=== PATIENT | female | born 1940 | race American Indian/Alaskan Native ===

== ENCOUNTER → 2017-10-10 | Emergency (ER) | payer MEDICARE ==
[~2017-10-10] VITALS: Ht 152.4 cm; Wt 45.0 kg
[~2017-10-10] MED LIST: ASPI-955 PO; BACI28OI9 TP; CEPH-572 PO; CEPH500C5 PO; COMIN IH; CefTRIAXone 2gm/NS 100ml IVPB 100 ML IV ONE; DILT60TA4 PO; DIPY50TA PO; HYDR-3972 PO; LISI10TA4 PO; OXCA300T39 PO; OXCA600T5 PO; POLY17PO10 PO; ZOL50T PO; [UNRECOGNIZED DRUG - REMARK]; dextrose 50%-water 50ml dispensing syringe IV ONE; normal saline 1000ML IV soln IV ONE
[2017-10-10 15:18] LABS: BASOPHILS % (AUTO) 0.5 % (0-1); EOSINOPHILS % (AUTO) 0.6 % (0-6); HEMATOCRIT 39.8 % (35.0-45.0); LYMPHOCYTES # (AUTO) 0.8 X10'3 (1.1-4.8); LYMPHOCYTES % (AUTO) 35.7 % (21-51); MEAN CORPUSCULAR HEMOGLOBIN 29.4 PG (27.0-31.0); MEAN CORPUSCULAR HGB CONC 32.7 % (33.0-36.5); MEAN CORPUSCULAR VOLUME 89.8 FL (78-98); MEAN PLATELET VOLUME 8.6 FL (7.4-10.4); MONOCYTES # (AUTO) 0.2 X10'3 (0-0.9); NEUTROPHILS # (AUTO) 1.2 X10'3 (1.8-7.7); NEUTROPHILS % (AUTO) 54.2 % (42-75); PLATELET COUNT 179 X10'3 (140-440); RED BLOOD COUNT 4.43 X10'6 (4.20-5.60); WHITE BLOOD COUNT 2.2 X10'3 (4.5-11.0)
[2017-10-10 15:21] LABS: ALANINE AMINOTRANSFERASE 35 U/L (12-78); ALBUMIN 3.7 G/DL (3.4-5.0); ALBUMIN/GLOBULIN RATIO 0.9 (1.1-1.5); ALKALINE PHOSPHATASE 84 IU/L (46-116); ANION GAP 6 (8-16); ASPARTATE AMINO TRANSFERASE 35 U/L (10-37); BILIRUBIN,TOTAL 0.4 MG/DL (0.1-1.0); BLOOD UREA NITROGEN 29 MG/DL (7-18); BUN/CREATININE RATIO 30.5 (6.6-38.0); CALCIUM 9.3 MG/DL (8.5-10.1); CHLORIDE 107 MMOL/L (99-107); CREATININE 0.95 MG/DL (0.40-0.90); GLUCOSE 114 MG/DL (70-104); POTASSIUM 4.3 MMOL/L (3.5-5.1); SODIUM 142 MMOL/L (135-145); TOTAL CARBON DIOXIDE 29.4 MMOL/L (24-32); TOTAL PROTEIN 7.9 G/DL (6.4-8.2); eGFR 57 ML/MIN
[2017-10-10 15:22] LABS: CLARITY,URINE SLIGHTLY CLOUDY (Clear); COLOR,URINE YELLOW (Yellow); GLUCOSE, URINE NEGATIVE (Neg); KETONES,URINE NEGATIVE (Neg); LEUKOCYTE ESTERASE ,URINE TRACE (Neg); NITRITES, URINE NEGATIVE (Neg); OCCULT BLOOD,URINE SMALL (Neg); PH,URINE 6.5 (4.8-8.0); PROTEIN,URINE 30 mg/dl (Neg); UA COLLECTION TYPE STRAIGHT CATH; UROBILINOGEN,URINE 0.2 E.U/dL (0.2-1.0)
[2017-10-10 15:31] LABS: AMORPHOUS URATES 1+; MUCUS STRANDS FEW /LPF (Neg); SQUAMOUS EPITHELIAL CELL,UR MANY /LPF (FEW)
[2017-10-10 15:32] LABS: BACTERIA,URINE 4+ /HPF (Neg); TRANSITIONAL EPI CELLS,URINE FEW /HPF; WBC,URINE 20-30 /HPF (0-4)
[2017-10-10 16:02] LABS: ANISOCYTOSIS 2+; BURR CELLS 1+; ELLIPTOCYTES FEW; PLATELET ESTIMATE NORMAL; TOTAL CELLS COUNTED 100
[2017-10-10 17:19] VITALS: BP 157/97
== END | disposition home or self-care (01) ==
LOC: ER 13:24
DX: G40.89 Other seizures (principal); N39.0 Urinary tract infection, site not specified; I12.9 Hypertensive chronic kidney disease with stage 1 through stage 4 chronic kidney disease, or unspecified chronic kidney disease; N18.9 Chronic kidney disease, unspecified; E16.2 Hypoglycemia, unspecified; J44.9 Chronic obstructive pulmonary disease, unspecified; I48.91 Unspecified atrial fibrillation; K21.9 Gastro-esophageal reflux disease without esophagitis; E78.00 Pure hypercholesterolemia, unspecified; Z66 Do not resuscitate; Z86.73 Personal history of transient ischemic attack (TIA), and cerebral infarction without residual deficits; Z95.0 Presence of cardiac pacemaker; Z98.890 Other specified postprocedural states; Z79.82 Long term (current) use of aspirin; Z79.899 Other long term (current) drug therapy
CPT/HCPCS: 36415; 80053; 81001; 82948; 83605; 84145; 85025; 87040; 87088; 96365; 96375; 99284; J0696; J7030

== ENCOUNTER 2017-10-30 11:45 | Emergency (ER) | payer MEDICARE, OTHER ==
[~2017-10-30] VITALS: Ht 152.4 cm; Wt 50.0 kg
[~2017-10-30 11:45] MED LIST changes: -CEPH-572 PO; -CefTRIAXone 2gm/NS 100ml IVPB 100 ML IV ONE; -dextrose 50%-water 50ml dispensing syringe IV ONE; -normal saline 1000ML IV soln IV ONE
[2017-10-30 12:41] LABS: BASOPHILS % (AUTO) 0.4 % (0-1); EOSINOPHILS # (AUTO) 0.1 X10'3 (0-0.9); EOSINOPHILS % (AUTO) 1.7 % (0-6); HEMATOCRIT 38.3 % (35.0-45.0); HEMOGLOBIN 12.4 g/dl (12.0-16.0); LYMPHOCYTES # (AUTO) 1.6 X10'3 (1.1-4.8); LYMPHOCYTES % (AUTO) 29.1 % (21-51); MEAN CORPUSCULAR HEMOGLOBIN 29.3 PG (27.0-31.0); MEAN CORPUSCULAR HGB CONC 32.4 % (33.0-36.5); MEAN CORPUSCULAR VOLUME 90.3 FL (78-98); MEAN PLATELET VOLUME 7.9 FL (7.4-10.4); MONOCYTES # (AUTO) 0.3 X10'3 (0-0.9); MONOCYTES % (AUTO) 4.8 % (2-12); NEUTROPHILS # (AUTO) 3.5 X10'3 (1.8-7.7); PLATELET COUNT 193 X10'3 (140-440); RED BLOOD COUNT 4.24 X10'6 (4.20-5.60); RED CELL DISTRIBUTION WIDTH 17.3 % (11.5-14.5); WHITE BLOOD COUNT 5.5 X10'3 (4.5-11.0)
[2017-10-30 12:51] LABS: PARTIAL THROMBOPLASTIN TIME 30 SECONDS (22-32); PROTHROMBIN TIME 10.2 SECONDS (9.0-12.0)
[2017-10-30 12:57] LABS: CLARITY,URINE CLOUDY (Clear); COLOR,URINE YELLOW (Yellow); GLUCOSE, URINE NEGATIVE (Neg); KETONES,URINE NEGATIVE (Neg); LEUKOCYTE ESTERASE ,URINE MODERATE (Neg); NITRITES, URINE NEGATIVE (Neg); OCCULT BLOOD,URINE LARGE (Neg); PH,URINE 7.5 (4.8-8.0); PROTEIN,URINE 30 mg/dl (Neg); UROBILINOGEN,URINE 0.2 E.U/dL (0.2-1.0)
[2017-10-30 12:58] LABS: ALANINE AMINOTRANSFERASE 36 U/L (12-78); ALBUMIN 3.5 G/DL (3.4-5.0); ALBUMIN/GLOBULIN RATIO 0.9 (1.1-1.5); ALKALINE PHOSPHATASE 78 IU/L (46-116); ANION GAP 7 (8-16); ASPARTATE AMINO TRANSFERASE 29 U/L (10-37); BILIRUBIN,TOTAL 0.3 MG/DL (0.1-1.0); BLOOD UREA NITROGEN 32 MG/DL (7-18); CALCIUM 8.8 MG/DL (8.5-10.1); CHLORIDE 109 MMOL/L (99-107); GLUCOSE 82 MG/DL (70-104); POTASSIUM 4.4 MMOL/L (3.5-5.1); SODIUM 145 MMOL/L (135-145); TOTAL PROTEIN 7.4 G/DL (6.4-8.2); eGFR 69 ML/MIN
[2017-10-30 13:03] LABS: UA COLLECTION TYPE STRAIGHT CATH
[2017-10-30 13:04] LABS: BACTERIA,URINE FEW /HPF (Neg); MUCUS STRANDS FEW /LPF (Neg); RBC,URINE 0-2 /HPF (0-2); SQUAMOUS EPITHELIAL CELL,UR MANY /LPF (FEW)
[2017-10-30] MEDS ORDERED: bisacodyl 10mg suppository rectal RC ONE (13:30)
[2017-10-30] MEDS ORDERED: BISA-155 PO (13:49)
[2017-10-30] MEDS ORDERED: BISA10SU60 RC (13:49)
[2017-10-30] MEDS ORDERED: METR500T4 PO (15:00)
[2017-10-30] MEDS ORDERED: metroNIDAZOLE 500mg tablet PO ONE (15:00)
[2017-10-30] MEDS ORDERED: normal saline 1000ml 1,000 ML IV SCH (15:28)
[2017-10-30] MEDS ORDERED: magnesium 4gm in 100ml NS 100 ML IV PRN (15:30)
[2017-10-30] MEDS ORDERED: dextrose 50%-water 50ml dispensing syringe IV PRN ×2 (15:30)
[2017-10-30] MEDS ORDERED: potassium Cl 20 mEq SR tablet PO PRN ×2 (15:30)
[2017-10-30] MEDS ORDERED: magnesium 2GM in 50ml NS 50 ML IV PRN (15:30)
[2017-10-30] MEDS ORDERED: mag hydrox/Alum hydrox/simeth 30ml oral suspension PO PRN (15:30)
[2017-10-30] MEDS ORDERED: magnesium hydroxide 30ml (MOM) UD suspension PO PRN (15:30)
[2017-10-30] MEDS ORDERED: dextrose ORAL solution 15 GM/59 ML bottle PO PRN ×2 (15:30)
[2017-10-30] MEDS ORDERED: insulin Lispro (HumaLOG) vial - multi-dose SQ SCH (15:30)
[2017-10-30] MEDS ORDERED: acetaminophen 325mg tablet PO PRN (15:30)
[2017-10-30] MEDS ORDERED: HYDROcodone/acetaminophen 5mg/325mg tablet PO PRN (15:30)
[2017-10-30] MEDS ORDERED: ondansetron/PF 4mg/2ml inj IV PRN (15:30)
[2017-10-30] MEDS ORDERED: potassium Cl 40MEQ/NS 500ml 500 ML IV PRN ×2 (15:30)
[2017-10-30] MEDS ORDERED: K and/or MAG REPLACEMENT MC SCH (15:30)
[2017-10-30] MEDS ORDERED: glucagon, human recombinant 1mg kit SUBCUT PRN (15:30)
[2017-10-30] MEDS ORDERED: MESSAGE TO PHARMACY PO ONE (15:30)
[2017-10-30 16:25] VITALS: BP 115/63
[2017-10-30] MEDS ORDERED: heparin, porcine 5000 units/ml vial SQ SCH (20:00)
[2017-10-30] MEDS ORDERED: Insulin Detemir pen SQ SCH (21:00)
== END 2017-10-30 16:27 | disposition home or self-care (01) ==
LOC: ER 11:46 → UNDOADMOB 15:28 → ED HOLD 15:28 → ER 16:27 → UNDODISOB 16:48
DX: K59.00 Constipation, unspecified (principal); N76.0 Acute vaginitis; E78.00 Pure hypercholesterolemia, unspecified; I10 Essential (primary) hypertension; J44.9 Chronic obstructive pulmonary disease, unspecified; K21.9 Gastro-esophageal reflux disease without esophagitis; I48.91 Unspecified atrial fibrillation; Z90.710 Acquired absence of both cervix and uterus; Z98.890 Other specified postprocedural states; Z95.0 Presence of cardiac pacemaker; Z86.73 Personal history of transient ischemic attack (TIA), and cerebral infarction without residual deficits; Z79.82 Long term (current) use of aspirin; Z79.899 Other long term (current) drug therapy
CPT/HCPCS: 36415; 74018; 74176; 80053; 81001; 83036; 85025; 85610; 85730; 87077; 87088; 87186; 99285; J3490; G0378

== ENCOUNTER 2018-01-23 14:11 | Inpatient (IN) | payer MEDICARE, OTHER ==
[~2018-01-23] VITALS: Ht 160 cm; Wt 50.0 kg
[~2018-01-23 14:11] MED LIST changes: -ASPI-955 PO; +ASPI81TA46 PO; -BACI28OI9 TP; +BISA-155 PO; -CEPH500C5 PO; -COMIN IH; -DILT60TA4 PO; +DULR RC; +IPRA4AER IH; +OXCA300T PO; -OXCA300T39 PO; +OXCA600T PO; -OXCA600T5 PO; -ZOL50T PO; +[UNRECOGNIZED DRUG - REMARK]; -[UNRECOGNIZED DRUG - REMARK]
[2018-01-23] MEDS ORDERED: normal saline 1000ML IV soln IVB ONE (14:20)
[2018-01-23] MEDS ORDERED: bisacodyl 10mg suppository rectal RC STA (14:42)
[2018-01-23 14:43] LABS: BASOPHILS % (AUTO) 0.3 % (0-1); EOSINOPHILS # (AUTO) 0.1 X10'3 (0-0.9); HEMATOCRIT 35.2 % (35.0-45.0); HEMOGLOBIN 11.6 g/dl (12.0-16.0); LYMPHOCYTES # (AUTO) 1.6 X10'3 (1.1-4.8); LYMPHOCYTES % (AUTO) 24.4 % (21-51); MEAN CORPUSCULAR HEMOGLOBIN 30.8 PG (27.0-31.0); MEAN CORPUSCULAR HGB CONC 32.9 % (33.0-36.5); MEAN CORPUSCULAR VOLUME 93.6 FL (78-98); MEAN PLATELET VOLUME 9.1 FL (7.4-10.4); MONOCYTES # (AUTO) 0.3 X10'3 (0-0.9); MONOCYTES % (AUTO) 4.7 % (2-12); NEUTROPHILS # (AUTO) 4.5 X10'3 (1.8-7.7); NEUTROPHILS % (AUTO) 68.6 % (42-75); PLATELET COUNT 193 X10'3 (140-440); RED BLOOD COUNT 3.77 X10'6 (4.20-5.60); WHITE BLOOD COUNT 6.6 X10'3 (4.5-11.0)
[2018-01-23] MEDS ORDERED: methylnaltrexone br 12mg/0.6ml inj***SubQ only SQ ONE (14:45)
[2018-01-23 14:58] LABS: ALANINE AMINOTRANSFERASE 29 U/L (12-78); ALBUMIN 3.5 G/DL (3.4-5.0); ALBUMIN/GLOBULIN RATIO 0.9 (1.1-1.5); ALKALINE PHOSPHATASE 51 IU/L (46-116); ANION GAP 11 (8-16); ASPARTATE AMINO TRANSFERASE 21 U/L (10-37); BILIRUBIN,TOTAL 0.2 MG/DL (0.1-1.0); BLOOD UREA NITROGEN 55 MG/DL (7-18); BUN/CREATININE RATIO 39.3 (6.6-38.0); CALCIUM 9.2 MG/DL (8.5-10.1); CHLORIDE 131 MMOL/L (99-107); GLUCOSE 123 MG/DL (70-104); POTASSIUM 3.9 MMOL/L (3.5-5.1); TOTAL CARBON DIOXIDE 26.4 MMOL/L (24-32); TOTAL PROTEIN 7.5 G/DL (6.4-8.2); eGFR 36 ML/MIN
[2018-01-23 15:13] LABS: SODIUM 168 MMOL/L (135-145)
[2018-01-23] MEDS ORDERED: dextrose 5%-normal saline 1,000 ML IV SCH (15:35)
[2018-01-23] MEDS ORDERED: bisacodyl 10mg suppository rectal RC PRN (17:20)
[2018-01-23] MEDS: K and/or MAG REPLACEMENT MC SCH (17:20)
[2018-01-23] MEDS ORDERED: HYDROcodone/acetaminophen 5mg/325mg tablet PO PRN (17:20)
[2018-01-23] MEDS ORDERED: diphenhydrAMINE 50 mg/ml inj IV PRN (17:20)
[2018-01-23] MEDS ORDERED: morphine 4 MG/ML inj SYRINge IV PRN (17:20)
[2018-01-23] MEDS ORDERED: non-formulary drug (Ipratropium/Albuterol Sulfate (Combivent Respimat Inhal Spray) 2 PUFFS IH PRN (17:20)
[2018-01-23] MEDS ORDERED: magnesium hydroxide 30ml (MOM) UD suspension PO PRN (17:20)
[2018-01-23] MEDS ORDERED: ondansetron/PF 4mg/2ml inj IV PRN (17:20)
[2018-01-23] MEDS ORDERED: potassium Cl 40MEQ/NS 500ml 500 ML IV PRN ×2 (17:20)
[2018-01-23] MEDS ORDERED: magnesium 2GM in 50ml NS 50 ML IV PRN (17:20)
[2018-01-23] MEDS ORDERED: magnesium 4gm in 100ml NS 100 ML IV PRN (17:20)
[2018-01-23] MEDS ORDERED: mag hydrox/Alum hydrox/simeth 30ml oral suspension PO PRN (17:20)
[2018-01-23] MEDS ORDERED: acetaminophen 325mg tablet PO PRN ×2 (17:20)
[2018-01-23] MEDS ORDERED: acetaminophen 650mg rectal suppository RC PRN (17:20)
[2018-01-23] MEDS ORDERED: magnesium Cl slow-release 64mg tablet PO PRN (17:20)
[2018-01-23] MEDS ORDERED: potassium Cl 20 mEq SR tablet PO PRN ×2 (17:20)
[2018-01-23] MEDS ORDERED: ipratropium/albuterol 3ml nebule IH PRN (17:25)
[2018-01-23] MEDS: sodium chloride 0.45% 1,000 ML IV SCH ×2 (18:33→23:45)
[2018-01-23 19:34] LABS: UA COLLECTION TYPE FOLEY CATH
[2018-01-23 19:35] LABS: CLARITY,URINE CLOUDY (Clear); COLOR,URINE RED (Yellow)
[2018-01-23 19:37] LABS: BACTERIA,URINE 2+ /HPF (Neg); RBC,URINE TNTC /HPF (0-2); SQUAMOUS EPITHELIAL CELL,UR FEW /LPF (FEW)
[2018-01-23] MEDS: heparin, porcine 5000 units/ml vial SQ SCH (20:05)
[2018-01-23] MEDS ORDERED: temazepam 15mg capsule PO PRN (21:00)
[2018-01-23] MEDS: oxcarbazepine 150mg tablet PO SCH (21:00)
[2018-01-23] MEDS ORDERED: non-formulary drug (Oxcarbazepine 1 TAB) PO SCH (21:00)
[2018-01-23 22:15] VITALS: BP 122/96
[2018-01-23 22:35] LABS: ALBUMIN 3.2 G/DL (3.4-5.0); ANION GAP 10 (8-16); BLOOD UREA NITROGEN 48 MG/DL (7-18); BUN/CREATININE RATIO 42.9 (6.6-38.0); CALCIUM 8.6 MG/DL (8.5-10.1); CHLORIDE 131 MMOL/L (99-107); CREATININE 1.12 MG/DL (0.40-0.90); GLUCOSE 100 MG/DL (70-104); POTASSIUM 3.9 MMOL/L (3.5-5.1); eGFR 47 ML/MIN
[2018-01-23 22:47] LABS: SODIUM 167 MMOL/L (135-145)
[2018-01-24] MEDS: sodium chloride 0.45% 1,000 ML IV SCH ×2 (02:32→15:45)
[2018-01-24 04:30] VITALS: BP 130/84
[2018-01-24 05:15] LABS: BASOPHILS % (AUTO) 0.3 % (0-1); EOSINOPHILS # (AUTO) 0.2 X10'3 (0-0.9); EOSINOPHILS % (AUTO) 2.9 % (0-6); HEMATOCRIT 31.2 % (35.0-45.0); HEMOGLOBIN 10.3 g/dl (12.0-16.0); LYMPHOCYTES # (AUTO) 1.4 X10'3 (1.1-4.8); LYMPHOCYTES % (AUTO) 19.4 % (21-51); MEAN CORPUSCULAR HEMOGLOBIN 30.8 PG (27.0-31.0); MEAN CORPUSCULAR HGB CONC 33.1 % (33.0-36.5); MEAN CORPUSCULAR VOLUME 93.1 FL (78-98); MEAN PLATELET VOLUME 9.3 FL (7.4-10.4); MONOCYTES # (AUTO) 0.3 X10'3 (0-0.9); MONOCYTES % (AUTO) 3.9 % (2-12); NEUTROPHILS # (AUTO) 5.2 X10'3 (1.8-7.7); NEUTROPHILS % (AUTO) 73.5 % (42-75); PLATELET COUNT 160 X10'3 (140-440); RED BLOOD COUNT 3.35 X10'6 (4.20-5.60); RED CELL DISTRIBUTION WIDTH 17.2 % (11.5-14.5); WHITE BLOOD COUNT 7.1 X10'3 (4.5-11.0)
[2018-01-24 05:35] LABS: ALANINE AMINOTRANSFERASE 32 U/L (12-78); ALBUMIN/GLOBULIN RATIO 0.9 (1.1-1.5); ALKALINE PHOSPHATASE 47 IU/L (46-116); ANION GAP 8 (8-16); ASPARTATE AMINO TRANSFERASE 33 U/L (10-37); BILIRUBIN,TOTAL 0.3 MG/DL (0.1-1.0); BLOOD UREA NITROGEN 42 MG/DL (7-18); BUN/CREATININE RATIO 42.4 (6.6-38.0); CALCIUM 8.3 MG/DL (8.5-10.1); CHLORIDE 130 MMOL/L (99-107); CREATININE 0.99 MG/DL (0.40-0.90); GLUCOSE 98 MG/DL (70-104); MAGNESIUM 2.2 MG/DL (1.5-2.4); PHOSPHORUS 3.4 MG/DL (2.3-4.5); POTASSIUM 3.4 MMOL/L (3.5-5.1); TOTAL CARBON DIOXIDE 24.1 MMOL/L (24-32); TOTAL PROTEIN 6.4 G/DL (6.4-8.2); eGFR 54 ML/MIN
[2018-01-24 05:37] LABS: SODIUM 162 MMOL/L (135-145)
[2018-01-24 07:00] VITALS: BP 150/88
[2018-01-24] MEDS ORDERED: non-formulary drug (Oxcarbazepine 1 TAB) PO SCH (08:00)
[2018-01-24] MEDS: K and/or MAG REPLACEMENT MC SCH (08:00)
[2018-01-24] MEDS: oxcarbazepine 150mg tablet PO SCH ×2 (09:40→21:05)
[2018-01-24] MEDS: heparin, porcine 5000 units/ml vial SQ SCH ×2 (09:40→21:05)
[2018-01-24] MEDS: aspirin 81mg tablet.DR PO SCH (09:40)
[2018-01-24] MEDS: lisinopril 10 MG tablet PO SCH (09:40)
[2018-01-24 10:34] LABS: ALBUMIN 3.1 G/DL (3.4-5.0); ANION GAP 9 (8-16); BLOOD UREA NITROGEN 40 MG/DL (7-18); BUN/CREATININE RATIO 42.6 (6.6-38.0); CALCIUM 8.1 MG/DL (8.5-10.1); CHLORIDE 125 MMOL/L (99-107); CREATININE 0.94 MG/DL (0.40-0.90); GLUCOSE 116 MG/DL (70-104); POTASSIUM 3.5 MMOL/L (3.5-5.1); SODIUM 159 MMOL/L (135-145); TOTAL CARBON DIOXIDE 25.4 MMOL/L (24-32); eGFR 57 ML/MIN
[2018-01-24 11:00] VITALS: BP 127/76
[2018-01-24 20:00] VITALS: BP 105/58
[2018-01-24 20:00] LABS: ALBUMIN 2.8 G/DL (3.4-5.0); ANION GAP 9 (8-16); BLOOD UREA NITROGEN 38 MG/DL (7-18); BUN/CREATININE RATIO 38.4 (6.6-38.0); CALCIUM 8.4 MG/DL (8.5-10.1); CHLORIDE 123 MMOL/L (99-107); CREATININE 0.99 MG/DL (0.40-0.90); GLUCOSE 120 MG/DL (70-104); POTASSIUM 3.4 MMOL/L (3.5-5.1); TOTAL CARBON DIOXIDE 23.6 MMOL/L (24-32); eGFR 54 ML/MIN
[2018-01-24 20:04] LABS: SODIUM 156 MMOL/L (135-145)
[2018-01-24] MEDS: docusate sod 100mg capsule PO SCH (21:05)
[2018-01-24] MEDS: polyethylene glycol 3350 17gm powd pack PO SCH (21:06)
[2018-01-25] VITALS: BP 108/51
[2018-01-25] MEDS: sodium chloride 0.45% 1,000 ML IV SCH ×2 (00:04→04:13)
[2018-01-25 04:01] LABS: ALANINE AMINOTRANSFERASE 39 U/L (12-78); ALBUMIN 2.8 G/DL (3.4-5.0); ALBUMIN/GLOBULIN RATIO 0.8 (1.1-1.5); ALKALINE PHOSPHATASE 69 IU/L (46-116); ANION GAP 9 (8-16); ASPARTATE AMINO TRANSFERASE 44 U/L (10-37); BASOPHILS % (AUTO) 0.4 % (0-1); BILIRUBIN,TOTAL 0.2 MG/DL (0.1-1.0); BLOOD UREA NITROGEN 40 MG/DL (7-18); BUN/CREATININE RATIO 39.2 (6.6-38.0); CALCIUM 8.1 MG/DL (8.5-10.1); CHLORIDE 123 MMOL/L (99-107); CREATININE 1.02 MG/DL (0.40-0.90); EOSINOPHILS # (AUTO) 0.3 X10'3 (0-0.9); EOSINOPHILS % (AUTO) 4.1 % (0-6); GLUCOSE 92 MG/DL (70-104); HEMATOCRIT 33.6 % (35.0-45.0); HEMOGLOBIN 11.3 g/dl (12.0-16.0); LYMPHOCYTES % (AUTO) 31.4 % (21-51); MEAN CORPUSCULAR HEMOGLOBIN 31.1 PG (27.0-31.0); MEAN CORPUSCULAR HGB CONC 33.5 % (33.0-36.5); MEAN CORPUSCULAR VOLUME 92.8 FL (78-98); MEAN PLATELET VOLUME 9.6 FL (7.4-10.4); MONOCYTES # (AUTO) 0.2 X10'3 (0-0.9); MONOCYTES % (AUTO) 3.8 % (2-12); NEUTROPHILS # (AUTO) 3.9 X10'3 (1.8-7.7); NEUTROPHILS % (AUTO) 60.3 % (42-75); PHOSPHORUS 3.1 MG/DL (2.3-4.5); PLATELET COUNT 139 X10'3 (140-440); POTASSIUM 3.6 MMOL/L (3.5-5.1); RED BLOOD COUNT 3.62 X10'6 (4.20-5.60); RED CELL DISTRIBUTION WIDTH 17.3 % (11.5-14.5); SODIUM 153 MMOL/L (135-145); TOTAL CARBON DIOXIDE 21.1 MMOL/L (24-32); TOTAL PROTEIN 6.4 G/DL (6.4-8.2); WHITE BLOOD COUNT 6.5 X10'3 (4.5-11.0); eGFR 52 ML/MIN
[2018-01-25 07:00] VITALS: BP 110/66
[2018-01-25] MEDS: oxcarbazepine 150mg tablet PO SCH ×2 (07:44→20:50)
[2018-01-25] MEDS: aspirin 81mg tablet.DR PO SCH (07:44)
[2018-01-25] MEDS: lisinopril 10 MG tablet PO SCH (07:44)
[2018-01-25] MEDS: docusate sod 100mg capsule PO SCH ×2 (07:44→20:50)
[2018-01-25] MEDS: heparin, porcine 5000 units/ml vial SQ SCH ×2 (07:45→20:50)
[2018-01-25] MEDS: K and/or MAG REPLACEMENT MC SCH (08:00)
[2018-01-25] MEDS: potassium CL 20mEq in D5-1/2NS 1,000 ML IV SCH ×2 (10:01→23:28)
[2018-01-25 10:37] LABS: ALBUMIN 2.8 G/DL (3.4-5.0); ANION GAP 10 (8-16); BLOOD UREA NITROGEN 38 MG/DL (7-18); BUN/CREATININE RATIO 40.4 (6.6-38.0); CHLORIDE 120 MMOL/L (99-107); CREATININE 0.94 MG/DL (0.40-0.90); GLUCOSE 82 MG/DL (70-104); POTASSIUM 3.8 MMOL/L (3.5-5.1); SODIUM 153 MMOL/L (135-145); TOTAL CARBON DIOXIDE 23.4 MMOL/L (24-32); eGFR 57 ML/MIN
[2018-01-25] MEDS: CefTRIAXone/D5W-Rocephin 1gm 50 ML IV SCH (17:45)
[2018-01-25] MEDS ORDERED: mineral oil 133ml enema RC PRN (18:40)
[2018-01-25 18:54] LABS: ALBUMIN 2.8 G/DL (3.4-5.0); ANION GAP 10 (8-16); BLOOD UREA NITROGEN 36 MG/DL (7-18); CHLORIDE 117 MMOL/L (99-107); GLUCOSE 92 MG/DL (70-104); POTASSIUM 4.1 MMOL/L (3.5-5.1); SODIUM 150 MMOL/L (135-145); TOTAL CARBON DIOXIDE 22.8 MMOL/L (24-32); eGFR 53 ML/MIN
[2018-01-25 20:00] VITALS: BP 162/86
[2018-01-25] MEDS: polyethylene glycol 3350 17gm powd pack PO SCH (20:50)
[2018-01-26] VITALS: BP 113/66
[2018-01-26 01:12] LABS: ALBUMIN 2.7 G/DL (3.4-5.0); ANION GAP 6 (8-16); BLOOD UREA NITROGEN 37 MG/DL (7-18); BUN/CREATININE RATIO 37.8 (6.6-38.0); CHLORIDE 118 MMOL/L (99-107); CREATININE 0.98 MG/DL (0.40-0.90); GLUCOSE 96 MG/DL (70-104); POTASSIUM 4.2 MMOL/L (3.5-5.1); SODIUM 150 MMOL/L (135-145); TOTAL CARBON DIOXIDE 25.8 MMOL/L (24-32); eGFR 55 ML/MIN
[2018-01-26 06:10] LABS: ALANINE AMINOTRANSFERASE 27 U/L (12-78); ALBUMIN 2.4 G/DL (3.4-5.0); ALBUMIN/GLOBULIN RATIO 0.8 (1.1-1.5); ALKALINE PHOSPHATASE 61 IU/L (46-116); ANION GAP 11 (8-16); ASPARTATE AMINO TRANSFERASE 23 U/L (10-37); BILIRUBIN,TOTAL 0.2 MG/DL (0.1-1.0); BLOOD UREA NITROGEN 33 MG/DL (7-18); BUN/CREATININE RATIO 37.5 (6.6-38.0); CALCIUM 7.6 MG/DL (8.5-10.1); CHLORIDE 118 MMOL/L (99-107); CREATININE 0.88 MG/DL (0.40-0.90); GLUCOSE 109 MG/DL (70-104); MAGNESIUM 1.7 MG/DL (1.5-2.4); POTASSIUM 4.4 MMOL/L (3.5-5.1); SODIUM 149 MMOL/L (135-145); TOTAL CARBON DIOXIDE 19.8 MMOL/L (24-32); TOTAL PROTEIN 5.5 G/DL (6.4-8.2); eGFR 62 ML/MIN
[2018-01-26 06:20] LABS: BASOPHILS % (AUTO) 0.2 % (0-1); EOSINOPHILS # (AUTO) 0.2 X10'3 (0-0.9); EOSINOPHILS % (AUTO) 3.5 % (0-6); HEMOGLOBIN 10.4 g/dl (12.0-16.0); LYMPHOCYTES # (AUTO) 1.7 X10'3 (1.1-4.8); LYMPHOCYTES % (AUTO) 29.7 % (21-51); MEAN CORPUSCULAR HGB CONC 33.6 % (33.0-36.5); MEAN CORPUSCULAR VOLUME 92.3 FL (78-98); MEAN PLATELET VOLUME 10.4 FL (7.4-10.4); MONOCYTES # (AUTO) 0.3 X10'3 (0-0.9); MONOCYTES % (AUTO) 5.7 % (2-12); NEUTROPHILS # (AUTO) 3.5 X10'3 (1.8-7.7); NEUTROPHILS % (AUTO) 60.9 % (42-75); PLATELET COUNT 135 X10'3 (140-440); RED BLOOD COUNT 3.35 X10'6 (4.20-5.60); RED CELL DISTRIBUTION WIDTH 16.8 % (11.5-14.5); WHITE BLOOD COUNT 5.7 X10'3 (4.5-11.0)
[2018-01-26 07:03] VITALS: BP 128/67
[2018-01-26] MEDS: K and/or MAG REPLACEMENT MC SCH (08:00)
[2018-01-26] MEDS: CefTRIAXone/D5W-Rocephin 1gm 50 ML IV SCH (08:49)
[2018-01-26] MEDS: oxcarbazepine 150mg tablet PO SCH ×2 (08:49→21:01)
[2018-01-26] MEDS: aspirin 81mg tablet.DR PO SCH (08:49)
[2018-01-26] MEDS: docusate sod 100mg capsule PO SCH ×2 (08:50→21:00)
[2018-01-26] MEDS: lisinopril 10 MG tablet PO SCH (08:50)
[2018-01-26] MEDS: heparin, porcine 5000 units/ml vial SQ SCH ×2 (08:50→21:00)
[2018-01-26 09:23] LABS: ALANINE AMINOTRANSFERASE 32 U/L (12-78); ALBUMIN 2.6 G/DL (3.4-5.0); ALBUMIN/GLOBULIN RATIO 0.8 (1.1-1.5); ALKALINE PHOSPHATASE 65 IU/L (46-116); ANION GAP 9 (8-16); ASPARTATE AMINO TRANSFERASE 32 U/L (10-37); BILIRUBIN,TOTAL 0.2 MG/DL (0.1-1.0); BLOOD UREA NITROGEN 30 MG/DL (7-18); BUN/CREATININE RATIO 34.5 (6.6-38.0); CHLORIDE 118 MMOL/L (99-107); CREATININE 0.87 MG/DL (0.40-0.90); GLUCOSE 109 MG/DL (70-104); POTASSIUM 4.5 MMOL/L (3.5-5.1); SODIUM 150 MMOL/L (135-145); TOTAL CARBON DIOXIDE 22.9 MMOL/L (24-32); eGFR 63 ML/MIN
[2018-01-26 11:01] VITALS: BP 132/66
[2018-01-26] MEDS: potassium CL 20mEq in D5-1/2NS 1,000 ML IV SCH (13:33)
[2018-01-26] MEDS ORDERED: desmopressin 0.1mg/ml nasal spray 5ml btl NS ONE (17:05)
[2018-01-26 17:40] LABS: ALANINE AMINOTRANSFERASE 31 U/L (12-78); ALBUMIN 2.7 G/DL (3.4-5.0); ALBUMIN/GLOBULIN RATIO 0.8 (1.1-1.5); ALKALINE PHOSPHATASE 67 IU/L (46-116); ANION GAP 6 (8-16); ASPARTATE AMINO TRANSFERASE 27 U/L (10-37); BILIRUBIN,TOTAL 0.2 MG/DL (0.1-1.0); BLOOD UREA NITROGEN 30 MG/DL (7-18); BUN/CREATININE RATIO 31.6 (6.6-38.0); CALCIUM 8.2 MG/DL (8.5-10.1); CHLORIDE 117 MMOL/L (99-107); CREATININE 0.95 MG/DL (0.40-0.90); GLUCOSE 91 MG/DL (70-104); POTASSIUM 4.9 MMOL/L (3.5-5.1); SODIUM 149 MMOL/L (135-145); TOTAL CARBON DIOXIDE 25.9 MMOL/L (24-32); TOTAL PROTEIN 5.9 G/DL (6.4-8.2); eGFR 57 ML/MIN
[2018-01-26] MEDS: dextrose 5%-water 1,000 ML IV SCH (17:58)
[2018-01-26] MEDS: LACTOSE-FREE FOOD 237ML (BOOST) PO SCH (18:00)
[2018-01-26 20:00] VITALS: BP 115/53
[2018-01-26] MEDS: polyethylene glycol 3350 17gm powd pack PO SCH (21:00)
[2018-01-27] VITALS: BP 134/82
[2018-01-27 06:09] LABS: BASOPHILS % (AUTO) 0.3 % (0-1); EOSINOPHILS # (AUTO) 0.2 X10'3 (0-0.9); EOSINOPHILS % (AUTO) 3.1 % (0-6); HEMATOCRIT 31.5 % (35.0-45.0); HEMOGLOBIN 10.3 g/dl (12.0-16.0); LYMPHOCYTES # (AUTO) 1.1 X10'3 (1.1-4.8); LYMPHOCYTES % (AUTO) 19.9 % (21-51); MEAN CORPUSCULAR HEMOGLOBIN 30.5 PG (27.0-31.0); MEAN CORPUSCULAR HGB CONC 32.8 % (33.0-36.5); MEAN PLATELET VOLUME 10.6 FL (7.4-10.4); MONOCYTES # (AUTO) 0.2 X10'3 (0-0.9); MONOCYTES % (AUTO) 3.7 % (2-12); NEUTROPHILS # (AUTO) 4.1 X10'3 (1.8-7.7); PLATELET COUNT 163 X10'3 (140-440); RED BLOOD COUNT 3.38 X10'6 (4.20-5.60); RED CELL DISTRIBUTION WIDTH 16.7 % (11.5-14.5); WHITE BLOOD COUNT 5.7 X10'3 (4.5-11.0)
[2018-01-27 06:24] LABS: ALANINE AMINOTRANSFERASE 38 U/L (12-78); ALBUMIN 2.8 G/DL (3.4-5.0); ALBUMIN/GLOBULIN RATIO 0.8 (1.1-1.5); ALKALINE PHOSPHATASE 64 IU/L (46-116); ANION GAP 8 (8-16); ASPARTATE AMINO TRANSFERASE 35 U/L (10-37); BILIRUBIN,TOTAL 0.2 MG/DL (0.1-1.0); BLOOD UREA NITROGEN 25 MG/DL (7-18); BUN/CREATININE RATIO 27.2 (6.6-38.0); CHLORIDE 113 MMOL/L (99-107); CREATININE 0.92 MG/DL (0.40-0.90); GLUCOSE 107 MG/DL (70-104); MAGNESIUM 1.8 MG/DL (1.5-2.4); PHOSPHORUS 3.2 MG/DL (2.3-4.5); POTASSIUM 4.8 MMOL/L (3.5-5.1); SODIUM 144 MMOL/L (135-145); TOTAL CARBON DIOXIDE 22.6 MMOL/L (24-32); TOTAL PROTEIN 6.1 G/DL (6.4-8.2); eGFR 59 ML/MIN
[2018-01-27 07:34] VITALS: BP 145/71
[2018-01-27] MEDS: K and/or MAG REPLACEMENT MC SCH (08:00)
[2018-01-27 08:14] LABS: HYPOGRANULAR PLATELETS FEW; LARGE PLATELETS FEW; PLATELET ESTIMATE NORMAL
[2018-01-27] MEDS: lisinopril 10 MG tablet PO SCH (08:18)
[2018-01-27] MEDS: oxcarbazepine 150mg tablet PO SCH ×2 (08:18→22:31)
[2018-01-27] MEDS: aspirin 81mg tablet.DR PO SCH (08:18)
[2018-01-27] MEDS: CefTRIAXone/D5W-Rocephin 1gm 50 ML IV SCH (08:19)
[2018-01-27] MEDS: heparin, porcine 5000 units/ml vial SQ SCH ×2 (08:19→22:31)
[2018-01-27] MEDS: docusate sod 100mg capsule PO SCH ×2 (08:23→20:00)
[2018-01-27] MEDS: dextrose 5%-water 1,000 ML IV SCH ×2 (08:24→22:39)
[2018-01-27] MEDS: LACTOSE-FREE FOOD 237ML (BOOST) PO SCH ×3 (08:26→17:47)
[2018-01-27 11:57] VITALS: BP 118/97
[2018-01-27 18:00] VITALS: BP 123/96
[2018-01-27] MEDS: polyethylene glycol 3350 17gm powd pack PO SCH (21:00)
[2018-01-28] VITALS: BP 134/63
[2018-01-28 06:27] LABS: BASOPHILS % (AUTO) 0.2 % (0-1); EOSINOPHILS # (AUTO) 0.2 X10'3 (0-0.9); EOSINOPHILS % (AUTO) 2.7 % (0-6); HEMATOCRIT 35.1 % (35.0-45.0); HEMOGLOBIN 11.8 g/dl (12.0-16.0); LYMPHOCYTES % (AUTO) 11.9 % (21-51); MEAN CORPUSCULAR HEMOGLOBIN 30.9 PG (27.0-31.0); MEAN CORPUSCULAR HGB CONC 33.6 % (33.0-36.5); MEAN CORPUSCULAR VOLUME 92.1 FL (78-98); MEAN PLATELET VOLUME 10.6 FL (7.4-10.4); MONOCYTES # (AUTO) 0.5 X10'3 (0-0.9); MONOCYTES % (AUTO) 5.7 % (2-12); NEUTROPHILS # (AUTO) 6.4 X10'3 (1.8-7.7); NEUTROPHILS % (AUTO) 79.5 % (42-75); PLATELET COUNT 146 X10'3 (140-440); RED BLOOD COUNT 3.81 X10'6 (4.20-5.60); RED CELL DISTRIBUTION WIDTH 16.6 % (11.5-14.5)
[2018-01-28 07:17] VITALS: BP 140/89
[2018-01-28 07:43] LABS: ALANINE AMINOTRANSFERASE 44 U/L (12-78); ALBUMIN/GLOBULIN RATIO 0.8 (1.1-1.5); ALKALINE PHOSPHATASE 76 IU/L (46-116); ANION GAP 9 (8-16); ASPARTATE AMINO TRANSFERASE 41 U/L (10-37); BILIRUBIN,TOTAL 0.2 MG/DL (0.1-1.0); BLOOD UREA NITROGEN 21 MG/DL (7-18); BUN/CREATININE RATIO 21.9 (6.6-38.0); CALCIUM 8.5 MG/DL (8.5-10.1); CHLORIDE 107 MMOL/L (99-107); CREATININE 0.96 MG/DL (0.40-0.90); GLUCOSE 100 MG/DL (70-104); MAGNESIUM 1.7 MG/DL (1.5-2.4); PHOSPHORUS 3.1 MG/DL (2.3-4.5); POTASSIUM 4.1 MMOL/L (3.5-5.1); SODIUM 142 MMOL/L (135-145); TOTAL CARBON DIOXIDE 26.4 MMOL/L (24-32); TOTAL PROTEIN 6.8 G/DL (6.4-8.2); eGFR 56 ML/MIN
[2018-01-28] MEDS: CefTRIAXone/D5W-Rocephin 1gm 50 ML IV SCH (07:53)
[2018-01-28] MEDS: oxcarbazepine 150mg tablet PO SCH ×2 (07:53→20:23)
[2018-01-28] MEDS: docusate sod 100mg capsule PO SCH ×2 (07:53→20:23)
[2018-01-28] MEDS: lisinopril 10 MG tablet PO SCH (07:54)
[2018-01-28] MEDS: aspirin 81mg tablet.DR PO SCH (07:54)
[2018-01-28] MEDS: heparin, porcine 5000 units/ml vial SQ SCH ×2 (07:55→20:24)
[2018-01-28] MEDS: LACTOSE-FREE FOOD 237ML (BOOST) PO SCH ×3 (07:55→20:23)
[2018-01-28] MEDS: K and/or MAG REPLACEMENT MC SCH (08:00)
[2018-01-28 08:34] LABS: LARGE PLATELETS FEW; PLATELET ESTIMATE NORMAL
[2018-01-28 11:44] VITALS: BP 119/62
[2018-01-28] MEDS: dextrose 5%-water 1,000 ML IV SCH (13:55)
[2018-01-28 20:00] VITALS: BP 123/83
[2018-01-28] MEDS: polyethylene glycol 3350 17gm powd pack PO SCH (20:23)
[2018-01-28] MEDS: lactobacillus rhamnosus 10,000 MMU CELLS/CAPSULE PO SCH (20:23)
[2018-01-29] VITALS: BP 130/60
[2018-01-29] MEDS: dextrose 5%-water 1,000 ML IV SCH ×2 (02:21→16:45)
[2018-01-29 06:28] LABS: ALANINE AMINOTRANSFERASE 34 U/L (12-78); ALBUMIN 2.2 G/DL (3.4-5.0); ALBUMIN/GLOBULIN RATIO 0.7 (1.1-1.5); ALKALINE PHOSPHATASE 54 IU/L (46-116); ANION GAP 7 (8-16); ASPARTATE AMINO TRANSFERASE 32 U/L (10-37); BILIRUBIN,TOTAL 0.2 MG/DL (0.1-1.0); BLOOD UREA NITROGEN 18 MG/DL (7-18); BUN/CREATININE RATIO 22.2 (6.6-38.0); CALCIUM 8.1 MG/DL (8.5-10.1); CHLORIDE 109 MMOL/L (99-107); CREATININE 0.81 MG/DL (0.40-0.90); GLUCOSE 95 MG/DL (70-104); POTASSIUM 3.9 MMOL/L (3.5-5.1); SODIUM 141 MMOL/L (135-145); TOTAL CARBON DIOXIDE 25.1 MMOL/L (24-32); TOTAL PROTEIN 5.5 G/DL (6.4-8.2); eGFR 68 ML/MIN
[2018-01-29 07:12] VITALS: BP 115/60
[2018-01-29] MEDS: oxcarbazepine 150mg tablet PO SCH ×2 (08:00→20:11)
[2018-01-29] MEDS: lactobacillus rhamnosus 10,000 MMU CELLS/CAPSULE PO SCH ×2 (08:00→20:11)
[2018-01-29] MEDS: lisinopril 10 MG tablet PO SCH (08:00)
[2018-01-29] MEDS: docusate sod 100mg capsule PO SCH ×2 (08:00→20:11)
[2018-01-29] MEDS: aspirin 81mg tablet.DR PO SCH (08:00)
[2018-01-29] MEDS: LACTOSE-FREE FOOD 237ML (BOOST) PO SCH ×3 (08:45→18:00)
[2018-01-29] MEDS: CefTRIAXone/D5W-Rocephin 1gm 50 ML IV SCH (08:45)
[2018-01-29] MEDS: heparin, porcine 5000 units/ml vial SQ SCH ×2 (08:46→20:11)
[2018-01-29] MEDS: K and/or MAG REPLACEMENT MC SCH (08:47)
[2018-01-29 11:49] VITALS: BP 107/59
[2018-01-29 11:55] VITALS: BP 96/64
[2018-01-29 19:00] VITALS: BP 168/75
[2018-01-29] MEDS: polyethylene glycol 3350 17gm powd pack PO SCH (20:11)
[2018-01-30] VITALS: BP 124/78
[2018-01-30 05:55] LABS: ALANINE AMINOTRANSFERASE 31 U/L (12-78); ALBUMIN 2.5 G/DL (3.4-5.0); ALBUMIN/GLOBULIN RATIO 0.7 (1.1-1.5); ALKALINE PHOSPHATASE 59 IU/L (46-116); ANION GAP 9 (8-16); ASPARTATE AMINO TRANSFERASE 25 U/L (10-37); BILIRUBIN,TOTAL 0.2 MG/DL (0.1-1.0); BLOOD UREA NITROGEN 12 MG/DL (7-18); BUN/CREATININE RATIO 17.4 (6.6-38.0); CALCIUM 8.3 MG/DL (8.5-10.1); CHLORIDE 107 MMOL/L (99-107); CREATININE 0.69 MG/DL (0.40-0.90); GLUCOSE 93 MG/DL (70-104); POTASSIUM 3.7 MMOL/L (3.5-5.1); SODIUM 140 MMOL/L (135-145); TOTAL CARBON DIOXIDE 24.4 MMOL/L (24-32); TOTAL PROTEIN 5.9 G/DL (6.4-8.2); eGFR 82 ML/MIN
[2018-01-30] MEDS: K and/or MAG REPLACEMENT MC SCH (06:27)
[2018-01-30] MEDS: aspirin 81mg tablet.DR PO SCH (07:08)
[2018-01-30] MEDS: lactobacillus rhamnosus 10,000 MMU CELLS/CAPSULE PO SCH ×2 (07:08→20:03)
[2018-01-30] MEDS: heparin, porcine 5000 units/ml vial SQ SCH ×2 (07:08→20:04)
[2018-01-30] MEDS: docusate sod 100mg capsule PO SCH ×2 (07:08→20:03)
[2018-01-30] MEDS: lisinopril 10 MG tablet PO SCH (07:08)
[2018-01-30] MEDS: dextrose 5%-water 1,000 ML IV SCH ×2 (07:09→20:02)
[2018-01-30] MEDS: oxcarbazepine 150mg tablet PO SCH ×2 (07:09→20:03)
[2018-01-30] MEDS: LACTOSE-FREE FOOD 237ML (BOOST) PO SCH ×3 (08:14→18:00)
[2018-01-30 08:26] VITALS: BP 141/74
[2018-01-30 11:42] VITALS: BP 118/87
[2018-01-30 18:00] VITALS: BP 154/73
[2018-01-30] MEDS: polyethylene glycol 3350 17gm powd pack PO SCH (20:04)
[2018-01-31] VITALS: BP 142/70
[2018-01-31 07:00] VITALS: BP 121/70
[2018-01-31] MEDS: K and/or MAG REPLACEMENT MC SCH (08:00)
[2018-01-31] MEDS: LACTOSE-FREE FOOD 237ML (BOOST) PO SCH ×2 (08:00→13:10)
[2018-01-31] MEDS: lactobacillus rhamnosus 10,000 MMU CELLS/CAPSULE PO SCH (08:49)
[2018-01-31] MEDS: heparin, porcine 5000 units/ml vial SQ SCH (08:49)
[2018-01-31] MEDS: aspirin 81mg tablet.DR PO SCH (08:49)
[2018-01-31] MEDS: docusate sod 100mg capsule PO SCH (08:49)
[2018-01-31] MEDS: oxcarbazepine 150mg tablet PO SCH (08:49)
[2018-01-31] MEDS: lisinopril 10 MG tablet PO SCH (08:50)
[2018-01-31] MEDS: dextrose 5%-water 1,000 ML IV SCH (10:35)
[2018-01-31 13:08] VITALS: BP 111/68
== END 2018-01-31 17:04 | disposition home health service (06) | DRG 682 ==
LOC: ER 14:11 → ED HOLD 17:17 → EDBEDREQTM 19:48 → SUR 3N 22:07
PROVIDERS: ADMIT Family Medicine; ATTEND Internal Medicine
DX: N17.9 Acute kidney failure, unspecified (principal); G93.40 Encephalopathy, unspecified; E43 Unspecified severe protein-calorie malnutrition; L89.152 Pressure ulcer of sacral region, stage 2; E87.0 Hyperosmolality and hypernatremia; I48.91 Unspecified atrial fibrillation; E86.0 Dehydration; N39.0 Urinary tract infection, site not specified; Z68.1 Body mass index [BMI] 19.9 or less, adult; F03.90 Unspecified dementia, unspecified severity, without behavioral disturbance, psychotic disturbance, mood disturbance, and anxiety; F41.9 Anxiety disorder, unspecified; E78.00 Pure hypercholesterolemia, unspecified; E78.5 Hyperlipidemia, unspecified; R62.7 Adult failure to thrive; I10 Essential (primary) hypertension; J44.9 Chronic obstructive pulmonary disease, unspecified; G40.909 Epilepsy, unspecified, not intractable, without status epilepticus; K59.00 Constipation, unspecified; K21.9 Gastro-esophageal reflux disease without esophagitis; Z66 Do not resuscitate; Z74.01 Bed confinement status; Z90.710 Acquired absence of both cervix and uterus; Z79.82 Long term (current) use of aspirin; Z79.899 Other long term (current) drug therapy; Z86.73 Personal history of transient ischemic attack (TIA), and cerebral infarction without residual deficits; Z82.49 Family history of ischemic heart disease and other diseases of the circulatory system; Z82.5 Family history of asthma and other chronic lower respiratory diseases; Z82.41 Family history of sudden cardiac death
CPT/HCPCS: 36415; 74018; 74176; 80048; 80053; 81001; 83605; 83735; 84100; 85025; 87040; 87070; 87088; 92616; 93005; 94760; 96360; 99291; A4315; A4414; A6212; A6213; A6257; A6258; A6449; J0696; J1644; J2212; J7030; J7042; J7070; J7120

== ENCOUNTER 2018-09-21 12:12 | Emergency (ER) | payer MEDICARE, OTHER ==
[~2018-09-21] VITALS: Ht 162.6 cm; Wt 35.0 kg
[~2018-09-21 12:12] MED LIST changes: -BISA-155 PO; +CEPH500C5 PO; -OXCA300T PO; +OXCA300T16 PO; -OXCA600T PO; +OXCA600T9 PO
[2018-09-21 13:19] LABS: BASOPHILS % (AUTO) 0.4 % (0-1); EOSINOPHILS # (AUTO) 0.1 X10'3 (0-0.9); EOSINOPHILS % (AUTO) 1.4 % (0-6); HEMOGLOBIN 10.6 g/dl (12.0-16.0); LYMPHOCYTES % (AUTO) 20.5 % (21-51); MEAN CORPUSCULAR HGB CONC 32.2 % (33.0-36.5); MEAN CORPUSCULAR VOLUME 86.9 FL (78-98); MEAN PLATELET VOLUME 7.8 FL (7.4-10.4); MONOCYTES # (AUTO) 0.2 X10'3 (0-0.9); MONOCYTES % (AUTO) 4.6 % (2-12); NEUTROPHILS # (AUTO) 3.5 X10'3 (1.8-7.7); NEUTROPHILS % (AUTO) 73.1 % (42-75); PLATELET COUNT 231 X10'3 (140-440); RED BLOOD COUNT 3.79 X10'6 (4.20-5.60); RED CELL DISTRIBUTION WIDTH 16.4 % (11.5-14.5); WHITE BLOOD COUNT 4.8 X10'3 (4.5-11.0)
[2018-09-21 13:33] LABS: PARTIAL THROMBOPLASTIN TIME 26 SECONDS (22-32); PROTHROMBIN TIME 10.2 SECONDS (9.0-12.0)
[2018-09-21 13:50] LABS: ALANINE AMINOTRANSFERASE 16 U/L (12-78); ALBUMIN 3.2 G/DL (3.4-5.0); ALBUMIN/GLOBULIN RATIO 0.7 (1.1-1.5); ALKALINE PHOSPHATASE 81 IU/L (46-116); ANION GAP 11 (8-16); ASPARTATE AMINO TRANSFERASE 26 U/L (10-37); BILIRUBIN,TOTAL 0.3 MG/DL (0.1-1.0); BLOOD UREA NITROGEN 24 MG/DL (7-18); BUN/CREATININE RATIO 27.6 (6.6-38.0); CALCIUM 9.1 MG/DL (8.5-10.1); CHLORIDE 107 MMOL/L (99-107); CREATININE 0.87 MG/DL (0.40-0.90); GLUCOSE 101 MG/DL (70-104); POTASSIUM 4.4 MMOL/L (3.5-5.1); SODIUM 144 MMOL/L (135-145); TOTAL CARBON DIOXIDE 26.2 MMOL/L (24-32); TOTAL PROTEIN 7.6 G/DL (6.4-8.2); eGFR 63 ML/MIN
[2018-09-21 13:54] LABS: TROPONIN I < 0.04 NG/ML (0.0-0.05)
[2018-09-21 14:55] LABS: CLARITY,URINE CLOUDY (Clear); COLOR,URINE YELLOW (Yellow); GLUCOSE, URINE NEGATIVE (Neg); KETONES,URINE NEGATIVE (Neg); LEUKOCYTE ESTERASE ,URINE MODERATE (Neg); NITRITES, URINE POSITIVE (Neg); OCCULT BLOOD,URINE MODERATE (Neg); PH,URINE 6.5 (4.8-8.0); PROTEIN,URINE 100 mg/dl (Neg)
[2018-09-21 14:59] LABS: UA COLLECTION TYPE STRAIGHT CATH
[2018-09-21 15:01] LABS: SQUAMOUS EPITHELIAL CELL,UR FEW /LPF (FEW); WBC,URINE 50-100 /HPF (0-4)
[2018-09-21 15:03] LABS: BACTERIA,URINE 4+ /HPF (Neg)
[2018-09-21] MEDS ORDERED: CEPH500C5 PO (15:09)
[2018-09-21] MEDS ORDERED: CefTRIAXone/D5W-Rocephin 1gm 50 ML IV ONE (15:10)
[2018-09-21 15:30] VITALS: BP 134/92
== END 2018-09-21 18:53 | disposition home or self-care (01) ==
LOC: ER 12:12
DX: N39.0 Urinary tract infection, site not specified (principal); G40.909 Epilepsy, unspecified, not intractable, without status epilepticus; I48.91 Unspecified atrial fibrillation; E78.00 Pure hypercholesterolemia, unspecified; I10 Essential (primary) hypertension; J44.9 Chronic obstructive pulmonary disease, unspecified; K21.9 Gastro-esophageal reflux disease without esophagitis; Z86.73 Personal history of transient ischemic attack (TIA), and cerebral infarction without residual deficits; Z90.710 Acquired absence of both cervix and uterus; Z98.890 Other specified postprocedural states; Z95.0 Presence of cardiac pacemaker; Z79.82 Long term (current) use of aspirin; Z79.899 Other long term (current) drug therapy
CPT/HCPCS: 36415; 70450; 71045; 80053; 81001; 82140; 84484; 85025; 85610; 85730; 87077; 87088; 87186; 93005; 96365; 99284; J0696; P9612

== ENCOUNTER 2018-10-18 20:14 | Inpatient (IN) | payer MEDICARE, OTHER ==
[~2018-10-18] VITALS: Ht 162.6 cm; Wt 35.0 kg
--- NOTE | 2018-10-18 20:44 | NUR ---
ATTEMPTED TO GET A STRAIGHT CATH UA FROM PT - I AM CONFIDENT IN CATH PLACEMENT HOWEVER NO URINE WAS OBTAINED. PT HAS DRY ORAL MUCOSA - SPOKE TO PA AND HE IS GOING TO ORDER IV FLUIDS, WILL ATTEMPT AGAIN LATER.
[2018-10-18] MEDS ORDERED: normal saline 1000ML IV soln IVB ONE (20:45)
[2018-10-18] MEDS: morphine 4 MG/ML inj SYRINge IV PRN (20:58)
--- NOTE | 2018-10-18 20:59 | NUR ---
iv fluids infusing - pt medicated for pain
[2018-10-18 21:43] LABS: BASOPHILS % (AUTO) 0 % (0-1); EOSINOPHILS % (AUTO) 0 % (0-6); HEMATOCRIT 32.7 % (35.0-45.0); HEMOGLOBIN 10.3 g/dl (12.0-16.0); LYMPHOCYTES # (AUTO) 0.3 X10'3 (1.1-4.8); LYMPHOCYTES % (AUTO) 6.9 % (21-51); MEAN CORPUSCULAR HEMOGLOBIN 28.3 PG (27.0-31.0); MEAN CORPUSCULAR HGB CONC 31.5 % (33.0-36.5); MEAN PLATELET VOLUME 9.1 FL (7.4-10.4); MONOCYTES # (AUTO) 0.1 X10'3 (0-0.9); MONOCYTES % (AUTO) 2.8 % (2-12); NEUTROPHILS # (AUTO) 4.1 X10'3 (1.8-7.7); NEUTROPHILS % (AUTO) 90.3 % (42-75); PLATELET COUNT 129 X10'3 (140-440); RED BLOOD COUNT 3.63 X10'6 (4.20-5.60); RED CELL DISTRIBUTION WIDTH 18.5 % (11.5-14.5); WHITE BLOOD COUNT 4.5 X10'3 (4.5-11.0)
[2018-10-18 21:50] LABS: ALANINE AMINOTRANSFERASE 23 U/L (12-78); ALBUMIN 2.5 G/DL (3.4-5.0); ALBUMIN/GLOBULIN RATIO 0.5 (1.1-1.5); ALKALINE PHOSPHATASE 64 IU/L (46-116); ANION GAP 14 (8-16); ASPARTATE AMINO TRANSFERASE 36 U/L (10-37); BILIRUBIN,TOTAL 0.7 MG/DL (0.1-1.0); BLOOD UREA NITROGEN 64 MG/DL (7-18); CALCIUM 9.5 MG/DL (8.5-10.1); GLUCOSE 113 MG/DL (70-104); TOTAL CARBON DIOXIDE 25.9 MMOL/L (24-32); TOTAL PROTEIN 7.3 G/DL (6.4-8.2); eGFR 31 ML/MIN
[2018-10-18 22:04] LABS: POTASSIUM 2.9 MMOL/L (3.5-5.1); SODIUM 162 MMOL/L (135-145)
[2018-10-18 22:05] LABS: CHLORIDE 122 MMOL/L (99-107)
[2018-10-18] MEDS: potassium CL 20mEq in D5-1/2NS 1,000 ML IV SCH (22:35)
--- NOTE | 2018-10-18 22:40 | NUR ---
ORAL CARE PROVIDED
[2018-10-18 23:01] LABS: CLARITY,URINE SLIGHTLY CLOUDY (Clear); COLOR,URINE YELLOW (Yellow); GLUCOSE, URINE NEGATIVE (Neg); KETONES,URINE NEGATIVE (Neg); LEUKOCYTE ESTERASE ,URINE SMALL (Neg); NITRITES, URINE NEGATIVE (Neg); OCCULT BLOOD,URINE LARGE (Neg); PROTEIN,URINE 100 mg/dl (Neg)
[2018-10-18 23:23] LABS: UA COLLECTION TYPE FOLEY CATH
[2018-10-18] MEDS ORDERED: ASPI-920 PO (23:26)
[2018-10-18] MEDS ORDERED: MAGN400O6 PO (23:27)
--- NOTE | 2018-10-18 23:28 | NUR ---
Please call daughter Shelia Rubin/ updates and qusetions [phone].
[2018-10-18 23:36] LABS: BACTERIA,URINE FEW /HPF (Neg); MUCUS STRANDS FEW /LPF (Neg); RBC,URINE NONE SEEN /HPF (0-2); SQUAMOUS EPITHELIAL CELL,UR FEW /LPF (FEW); TRANSITIONAL EPI CELLS,URINE FEW /HPF; WBC CLUMPS,URINE FEW /HPF (NEGATIVE)
[2018-10-18 23:37] LABS: FINE GRANULAR CAST 0-3 /LPF (NEGATIVE)
[2018-10-18 23:43] LABS: PLATELET ESTIMATE DECREASED; TOTAL CELLS COUNTED 100
[2018-10-18] MEDS ORDERED: sodium chloride 0.45% 1,000 ML IV SCH (23:56)
[2018-10-19] MEDS ORDERED: ondansetron/PF 4mg/2ml inj IV PRN
--- NOTE | 2018-10-19 00:53 | NUR ---
called and left msg for Dr. Sarmiento re: pts K of 2.9 and need for replacement orders
--- NOTE | 2018-10-19 01:07 | NUR ---
rec'd call back from MD Sarmiento - telephone order for 10mEq potassium with lidocaine (k Alan) x 4 doses
[2018-10-19] MEDS: potass W/LIDOcaine 10mEq/100ml 100 ML IV SCH ×4 (01:59→06:39)
[2018-10-19] MEDS: morphine 4 MG/ML inj SYRINge IV PRN ×2 (05:53→14:01)
[2018-10-19 06:29] LABS: BASOPHILS % (AUTO) 0 % (0-1); EOSINOPHILS % (AUTO) 0.1 % (0-6); HEMATOCRIT 31.7 % (35.0-45.0); HEMOGLOBIN 10.1 g/dl (12.0-16.0); LYMPHOCYTES # (AUTO) 0.1 X10'3 (1.1-4.8); LYMPHOCYTES % (AUTO) 1.7 % (21-51); MEAN CORPUSCULAR HEMOGLOBIN 28.5 PG (27.0-31.0); MEAN CORPUSCULAR HGB CONC 31.8 % (33.0-36.5); MEAN CORPUSCULAR VOLUME 89.5 FL (78-98); MEAN PLATELET VOLUME 9.2 FL (7.4-10.4); MONOCYTES # (AUTO) 0.1 X10'3 (0-0.9); MONOCYTES % (AUTO) 0.8 % (2-12); NEUTROPHILS # (AUTO) 6.8 X10'3 (1.8-7.7); NEUTROPHILS % (AUTO) 97.4 % (42-75); PLATELET COUNT 139 X10'3 (140-440); RED BLOOD COUNT 3.55 X10'6 (4.20-5.60)
[2018-10-19 06:39] LABS: ALANINE AMINOTRANSFERASE 21 U/L (12-78); ALBUMIN 2.2 G/DL (3.4-5.0); ALBUMIN/GLOBULIN RATIO 0.5 (1.1-1.5); ALKALINE PHOSPHATASE 57 IU/L (46-116); ANION GAP 13 (8-16); ASPARTATE AMINO TRANSFERASE 33 U/L (10-37); BILIRUBIN,TOTAL 0.8 MG/DL (0.1-1.0); BLOOD UREA NITROGEN 57 MG/DL (7-18); BUN/CREATININE RATIO 42.5 (6.6-38.0); CALCIUM 8.9 MG/DL (8.5-10.1); CHLORIDE 126 MMOL/L (99-107); CREATININE 1.34 MG/DL (0.40-0.90); GLUCOSE 106 MG/DL (70-104); POTASSIUM 3.7 MMOL/L (3.5-5.1); TOTAL CARBON DIOXIDE 23.3 MMOL/L (24-32); TOTAL PROTEIN 6.8 G/DL (6.4-8.2); eGFR 38 ML/MIN
[2018-10-19 07:16] LABS: SODIUM 162 MMOL/L (135-145)
[2018-10-19 07:20] LABS: BANDS% (MANUAL) 7 % (0-10); BASOPHILS % (MANUAL) 0 % (0-1); EOSINOPHILS % (MANUAL) 0 % (0-6); LARGE PLATELETS FEW; LYMPHOCYTES % (MANUAL) 1 % (21-51); MONOCYTES % (MANUAL) 0 % (2-12); NEUTROPHILS % (MANUAL) 92 % (42-75); PLATELET ESTIMATE DECREASED; POLYCHROMASIA FEW; TOTAL CELLS COUNTED 100
[2018-10-19 07:21] LABS: ANISOCYTOSIS 2+; ELLIPTOCYTES 1+; TARGET CELLS 1+; TOXIC GRANULATION 2+
[2018-10-19 07:22] LABS: BURR CELLS 2+; SCHISTOCYTES FEW
[2018-10-19] MEDS: oxcarbazepine 150mg tablet PO SCH (08:00)
[2018-10-19] MEDS: potassium CL 20mEq in D5-1/2NS 1,000 ML IV SCH (08:10)
[2018-10-19] MEDS: heparin, porcine 5000 units/ml vial SQ SCH ×3 (08:12→16:08)
[2018-10-19] MEDS: dextrose 5%-water 1,000 ML IV SCH ×2 (08:25→21:20)
[2018-10-19] MEDS: ampicillin inj 1 GM in normal saline 100ml IV soln 100 ML IV SCH ×3 (10:07→21:17)
--- NOTE | 2018-10-19 12:56 | NUR ---
patient on bed asleep,we will continue to monitor.
[2018-10-19 20:45] VITALS: BP 120/48
--- NOTE | 2018-10-19 20:45 | NUR ---
Received report and patient brought to room on bed. Patient unresponsive to verbal stimulus. Seems agitated with care. VS taken and patient skin checked.
[2018-10-19 22:00] VITALS: BP 148/86
[2018-10-20] MEDS: heparin, porcine 5000 units/ml vial SQ SCH ×3 (01:43→15:44)
[2018-10-20] MEDS: ampicillin inj 1 GM in normal saline 100ml IV soln 100 ML IV SCH ×4 (01:43→20:55)
--- NOTE | 2018-10-20 06:18 | NUR ---
Problems reprioritized. Patient report given, questions answered & plan of care reviewed with STEPHANY Wills.
--- NOTE | 2018-10-20 06:20 | NUR ---
Patient in room ORTHO 4023. I have received report from Marisel and had the opportunity to ask questions and assume patient care.
[2018-10-20 06:30] VITALS: BP 131/81
[2018-10-20 06:40] LABS: BASOPHILS # (AUTO) 0.1 X10'3 (0-0.2); BASOPHILS % (AUTO) 0.5 % (0-1); EOSINOPHILS % (AUTO) 0.1 % (0-6); HEMATOCRIT 30.5 % (35.0-45.0); HEMOGLOBIN 9.7 g/dl (12.0-16.0); LYMPHOCYTES # (AUTO) 0.4 X10'3 (1.1-4.8); MEAN CORPUSCULAR HEMOGLOBIN 28.7 PG (27.0-31.0); MEAN CORPUSCULAR HGB CONC 31.9 % (33.0-36.5); MEAN PLATELET VOLUME 9.2 FL (7.4-10.4); MONOCYTES # (AUTO) 0.1 X10'3 (0-0.9); MONOCYTES % (AUTO) 0.5 % (2-12); NEUTROPHILS # (AUTO) 10.1 X10'3 (1.8-7.7); NEUTROPHILS % (AUTO) 94.9 % (42-75); PLATELET COUNT 147 X10'3 (140-440); RED BLOOD COUNT 3.39 X10'6 (4.20-5.60); RED CELL DISTRIBUTION WIDTH 18.9 % (11.5-14.5); WHITE BLOOD COUNT 10.7 X10'3 (4.5-11.0)
[2018-10-20 07:05] LABS: ALANINE AMINOTRANSFERASE 24 U/L (12-78); ALBUMIN 2.1 G/DL (3.4-5.0); ALBUMIN/GLOBULIN RATIO 0.5 (1.1-1.5); ALKALINE PHOSPHATASE 59 IU/L (46-116); ANION GAP 11 (8-16); ASPARTATE AMINO TRANSFERASE 45 U/L (10-37); BILIRUBIN,TOTAL 0.8 MG/DL (0.1-1.0); BLOOD UREA NITROGEN 57 MG/DL (7-18); BUN/CREATININE RATIO 44.5 (6.6-38.0); CALCIUM 8.9 MG/DL (8.5-10.1); CHLORIDE 129 MMOL/L (99-107); CREATININE 1.28 MG/DL (0.40-0.90); GLUCOSE 91 MG/DL (70-104); TOTAL CARBON DIOXIDE 22.6 MMOL/L (24-32); TOTAL PROTEIN 6.5 G/DL (6.4-8.2); eGFR 40 ML/MIN
[2018-10-20 07:18] LABS: SODIUM 163 MMOL/L (135-145)
[2018-10-20] MEDS: oxcarbazepine 150mg tablet PO SCH (07:30)
--- NOTE | 2018-10-20 09:18 | NUR ---
Critical Na of 163. Paged Dr Caldera to notify.
[2018-10-20 10:00] VITALS: BP 138/71
[2018-10-20] MEDS: acetaminophen 650mg rectal suppository RC PRN (12:20)
[2018-10-20] MEDS: HYDROmorphone inj. 0.5 MG/0.5 ML DISP.SYRIN IV PRN (13:53)
[2018-10-20] MEDS: dextrose 5%-water 1,000 ML IV SCH (15:45)
--- NOTE | 2018-10-20 16:42 | NUR ---
Malnutrition consult/Wound consult: Patient is very cachetic and very low BMI presenting with FTT per MD note and admitted with hypernatremia sodium 163. Pt is receiving D5% at 50 ml/hr. H/o CVA, nonverbal at baseline, and dementia. H/o multiple prior admission with dehydration and hypernatremia. During past visits patient tolerated Pureed diet and nectar thick liquids, currently is NPO this visit. Patient lives at home with family and daughter is student finance advisor. No edema present. Has severe muscle weakness. Patient has severe malnutrition. Usually takes dulcolax, Milk of mag, and miralax at home for constipation per H&P. Currently not receiving bowel care. Presents with left hip pressure ulcer, sacrum pressure ulcer, and right heel purple pressure ulcer. Jagdish is 20. Current documented weight is 64% of IBW weighing in at 77 lbs documented as "emergency weight." One year ago pt weighed 110 lbs, would be a total of 33 lbs lost, 70%, in one year. No STAFF RADIOGRAPHER consult pending. Discussed above with RN. Recommend: 1. BSS prior to diet advancement and advance diet as medically indicated per STAFF RADIOGRAPHER resc 2. If STAFF RADIOGRAPHER recommends nectar thick liquid patient's family may benefit from education on nectar thick liquid fluid options to prevent dehydration 3. ONS when diet is advanced 4. Weekly wts Addendum: 10/20/18 at [address] Amended: Links added.
[2018-10-20 18:00] VITALS: BP 136/74
--- NOTE | 2018-10-20 18:19 | NUR ---
Problems reprioritized. Patient report given, questions answered & plan of care reviewed with eda.
--- NOTE | 2018-10-20 18:36 | NUR ---
Patient in room ORTHO 4023. I have received report from STEPHANY Wills and had the opportunity to ask questions and assume patient care.
[2018-10-20 22:00] VITALS: BP 175/79
[2018-10-21] MEDS: heparin, porcine 5000 units/ml vial SQ SCH ×2 (00:20→07:47)
[2018-10-21] MEDS: HYDROmorphone inj. 0.5 MG/0.5 ML DISP.SYRIN IV PRN ×2 (00:23→13:40)
[2018-10-21 02:00] VITALS: BP 119/72
[2018-10-21] MEDS: ampicillin inj 1 GM in normal saline 100ml IV soln 100 ML IV SCH ×4 (02:07→19:39)
[2018-10-21] MEDS: dextrose 5%-water 1,000 ML IV SCH ×2 (02:11→13:27)
[2018-10-21 06:00] VITALS: BP 148/59
--- NOTE | 2018-10-21 06:37 | NUR ---
Problems reprioritized. Patient report given, questions answered & plan of care reviewed with STEPHANY King.
[2018-10-21 06:47] LABS: ALANINE AMINOTRANSFERASE 40 U/L (12-78); ALBUMIN 1.8 G/DL (3.4-5.0); ALBUMIN/GLOBULIN RATIO 0.4 (1.1-1.5); ALKALINE PHOSPHATASE 57 IU/L (46-116); ANION GAP 11 (8-16); ASPARTATE AMINO TRANSFERASE 105 U/L (10-37); BILIRUBIN,TOTAL 0.6 MG/DL (0.1-1.0); BLOOD UREA NITROGEN 54 MG/DL (7-18); BUN/CREATININE RATIO 40.6 (6.6-38.0); CALCIUM 8.1 MG/DL (8.5-10.1); CHLORIDE 122 MMOL/L (99-107); CREATININE 1.33 MG/DL (0.40-0.90); GLUCOSE 172 MG/DL (70-104); POTASSIUM 3.6 MMOL/L (3.5-5.1); SODIUM 154 MMOL/L (135-145); TOTAL CARBON DIOXIDE 21.1 MMOL/L (24-32); eGFR 38 ML/MIN
--- NOTE | 2018-10-21 06:55 | NUR ---
Patient in room ORTHO 4023. I have received report from Marisel Reeder RN and had the opportunity to ask questions and assume patient care.
[2018-10-21 07:14] LABS: BASOPHILS % (AUTO) 0.1 % (0-1); EOSINOPHILS % (AUTO) 0.4 % (0-6); HEMATOCRIT 30.1 % (35.0-45.0); HEMOGLOBIN 9.7 g/dl (12.0-16.0); LYMPHOCYTES # (AUTO) 0.6 X10'3 (1.1-4.8); LYMPHOCYTES % (AUTO) 6.8 % (21-51); MEAN CORPUSCULAR HEMOGLOBIN 28.8 PG (27.0-31.0); MEAN CORPUSCULAR HGB CONC 32.3 % (33.0-36.5); MEAN CORPUSCULAR VOLUME 89.1 FL (78-98); MEAN PLATELET VOLUME 9.7 FL (7.4-10.4); MONOCYTES # (AUTO) 0.1 X10'3 (0-0.9); MONOCYTES % (AUTO) 1.3 % (2-12); NEUTROPHILS # (AUTO) 8.7 X10'3 (1.8-7.7); NEUTROPHILS % (AUTO) 91.4 % (42-75); PLATELET COUNT 178 X10'3 (140-440); RED BLOOD COUNT 3.38 X10'6 (4.20-5.60); RED CELL DISTRIBUTION WIDTH 19.2 % (11.5-14.5); WHITE BLOOD COUNT 9.4 X10'3 (4.5-11.0)
[2018-10-21] MEDS: oxcarbazepine 150mg tablet PO SCH (07:43)
[2018-10-21 10:00] VITALS: BP 150/94
[2018-10-21] MEDS ORDERED: LORazepam 2 mg/ml vial IV PRN (12:40)
--- NOTE | 2018-10-21 12:49 | NUR ---
Reassessment 10/21: Patient's Na remains elevated however lower than admit, now at 154 and pt continues with D5. Per physical assessment patient with hypoactive bowel sounds, still with no routine bowel care. Pt remains NPO, no BSS ordered. Per MD notes CM to discuss comfort care with family, code status currently DNR. Will continue to follow and make recommendations as appropriate. 10/22: Malnutrition consult/Wound consult: Patient is very cachetic and very low BMI presenting with FTT per MD note and admitted with hypernatremia sodium 163. Pt is receiving D5% at 50 ml/hr. H/o CVA, nonverbal at baseline, and dementia. H/o multiple prior admission with dehydration and hypernatremia. During past visits patient tolerated Pureed diet and nectar thick liquids, currently is NPO this visit. Patient lives at home with family and daughter is area counselor. No edema present. Has severe muscle weakness. Patient has severe malnutrition. Usually takes dulcolax, Milk of mag, and miralax at home for constipation per H&P. Currently not receiving bowel care. Presents with left hip pressure ulcer, sacrum pressure ulcer, and right heel purple pressure ulcer. Jagdish is 20. Current documented weight is 64% of IBW weighing in at 77 lbs documented as "emergency weight." One year ago pt weighed 110 lbs, would be a total of 33 lbs lost, 70%, in one year. No TRAVEL MONEY ADVISOR consult pending. Discussed above with RN. Recommend: 1. BSS prior to diet advancement and advance diet as medically indicated per TRAVEL MONEY ADVISOR resc 2. If TRAVEL MONEY ADVISOR recommends nectar thick liquid patient's family may benefit from education on nectar thick liquid fluid options to prevent dehydration 3. ONS when diet is advanced 4. Weekly wts 5. Monitor for change in code status Addendum: 10/21/18 at [address] Amended: Links added.
--- NOTE | 2018-10-21 14:57 | NUR ---
Paged DR. Morales to Can we get a respiratory consult patient is very congested and we tried to suction but nothing came up. DR called back and oked order, will continue to monitor
[2018-10-21 18:00] VITALS: BP 128/73
--- NOTE | 2018-10-21 18:12 | NUR ---
Problems reprioritized. Patient report given, questions answered & plan of care reviewed with Shannon HAMMOND.
--- NOTE | 2018-10-21 18:42 | NUR ---
Patient in room ORTHO 4023. I have received report from Fernando HAMMOND and had the opportunity to ask questions and assume patient care.
[2018-10-21 22:00] VITALS: BP 129/80
[2018-10-22] MEDS: ampicillin inj 1 GM in normal saline 100ml IV soln 100 ML IV SCH ×4 (02:07→21:32)
[2018-10-22] MEDS: dextrose 5%-water 1,000 ML IV SCH (03:25)
[2018-10-22] MEDS: HYDROmorphone inj. 0.5 MG/0.5 ML DISP.SYRIN IV PRN ×2 (03:30→15:22)
--- NOTE | 2018-10-22 06:18 | NUR ---
Problems reprioritized. Patient report given, questions answered & plan of care reviewed with Fernando HAMMOND.
--- NOTE | 2018-10-22 06:49 | NUR ---
Patient in room ORTHO 4023. I have received report from Shannon HAMMOND and had the opportunity to ask questions and assume patient care.
[2018-10-22 08:23] LABS: BASOPHILS % (AUTO) 0 % (0-1); EOSINOPHILS # (AUTO) 0.1 X10'3 (0-0.9); EOSINOPHILS % (AUTO) 1.5 % (0-6); HEMATOCRIT 29.3 % (35.0-45.0); HEMOGLOBIN 9.3 g/dl (12.0-16.0); LYMPHOCYTES # (AUTO) 0.5 X10'3 (1.1-4.8); LYMPHOCYTES % (AUTO) 8.2 % (21-51); MEAN CORPUSCULAR HEMOGLOBIN 28.3 PG (27.0-31.0); MEAN CORPUSCULAR HGB CONC 31.9 % (33.0-36.5); MEAN CORPUSCULAR VOLUME 88.8 FL (78-98); MEAN PLATELET VOLUME 9.6 FL (7.4-10.4); MONOCYTES # (AUTO) 0.1 X10'3 (0-0.9); MONOCYTES % (AUTO) 0.9 % (2-12); NEUTROPHILS # (AUTO) 5.5 X10'3 (1.8-7.7); NEUTROPHILS % (AUTO) 89.4 % (42-75); PLATELET COUNT 185 X10'3 (140-440); RED CELL DISTRIBUTION WIDTH 18.4 % (11.5-14.5); WHITE BLOOD COUNT 6.2 X10'3 (4.5-11.0)
[2018-10-22 08:50] LABS: ALANINE AMINOTRANSFERASE 39 U/L (12-78); ALBUMIN 1.9 G/DL (3.4-5.0); ALBUMIN/GLOBULIN RATIO 0.5 (1.1-1.5); ALKALINE PHOSPHATASE 53 IU/L (46-116); ANION GAP 10 (8-16); ASPARTATE AMINO TRANSFERASE 66 U/L (10-37); BILIRUBIN,TOTAL 0.5 MG/DL (0.1-1.0); BLOOD UREA NITROGEN 35 MG/DL (7-18); BUN/CREATININE RATIO 34.3 (6.6-38.0); CALCIUM 7.9 MG/DL (8.5-10.1); CHLORIDE 116 MMOL/L (99-107); CREATININE 1.02 MG/DL (0.40-0.90); GLUCOSE 97 MG/DL (70-104); POTASSIUM 3.4 MMOL/L (3.5-5.1); SODIUM 149 MMOL/L (135-145); TOTAL CARBON DIOXIDE 23.4 MMOL/L (24-32); eGFR 52 ML/MIN
[2018-10-22] MEDS ORDERED: potassium Cl 40MEQ/NS 500ml 500 ML IV PRN (12:05)
[2018-10-22] MEDS: potassium Cl 40MEQ/NS 500ml 500 ML IV PRN (15:11)
[2018-10-22 18:00] VITALS: BP 127/105
--- NOTE | 2018-10-22 18:30 | NUR ---
Patient in room ORTHO 4023. I have received report from STEPHANY CURTIS and had the opportunity to ask questions and assume patient care.
--- NOTE | 2018-10-22 18:38 | NUR ---
Problems reprioritized. Patient report given, questions answered & plan of care reviewed with Anna HAMMOND.
[2018-10-22 22:00] VITALS: BP 156/88
[2018-10-23] MEDS: ampicillin inj 1 GM in normal saline 100ml IV soln 100 ML IV SCH ×5 (02:43→20:38)
[2018-10-23] MEDS: dextrose 5%-water 1,000 ML IV SCH ×2 (02:44→16:11)
--- NOTE | 2018-10-23 06:26 | NUR ---
Problems reprioritized. Patient report given, questions answered & plan of care reviewed with STEPHANY SILVA.
[2018-10-23 06:44] LABS: BASOPHILS % (AUTO) 0.7 % (0-1); EOSINOPHILS # (AUTO) 0.1 X10'3 (0-0.9); EOSINOPHILS % (AUTO) 1.1 % (0-6); HEMATOCRIT 30.2 % (35.0-45.0); HEMOGLOBIN 9.6 g/dl (12.0-16.0); LYMPHOCYTES # (AUTO) 0.5 X10'3 (1.1-4.8); LYMPHOCYTES % (AUTO) 8.4 % (21-51); MEAN CORPUSCULAR HEMOGLOBIN 28.1 PG (27.0-31.0); MEAN CORPUSCULAR HGB CONC 31.8 % (33.0-36.5); MEAN CORPUSCULAR VOLUME 88.5 FL (78-98); MEAN PLATELET VOLUME 9.3 FL (7.4-10.4); MONOCYTES # (AUTO) 0.1 X10'3 (0-0.9); MONOCYTES % (AUTO) 1.1 % (2-12); NEUTROPHILS # (AUTO) 4.8 X10'3 (1.8-7.7); NEUTROPHILS % (AUTO) 88.7 % (42-75); PLATELET COUNT 235 X10'3 (140-440); RED BLOOD COUNT 3.42 X10'6 (4.20-5.60); RED CELL DISTRIBUTION WIDTH 18.1 % (11.5-14.5); WHITE BLOOD COUNT 5.5 X10'3 (4.5-11.0)
[2018-10-23 06:57] LABS: ALANINE AMINOTRANSFERASE 38 U/L (12-78); ALBUMIN/GLOBULIN RATIO 0.5 (1.1-1.5); ALKALINE PHOSPHATASE 55 IU/L (46-116); ANION GAP 12 (8-16); ASPARTATE AMINO TRANSFERASE 74 U/L (10-37); BILIRUBIN,TOTAL 0.6 MG/DL (0.1-1.0); BLOOD UREA NITROGEN 23 MG/DL (7-18); BUN/CREATININE RATIO 24.7 (6.6-38.0); CALCIUM 7.8 MG/DL (8.5-10.1); CHLORIDE 113 MMOL/L (99-107); CREATININE 0.93 MG/DL (0.40-0.90); GLUCOSE 92 MG/DL (70-104); MAGNESIUM 1.7 MG/DL (1.5-2.4); POTASSIUM 3.8 MMOL/L (3.5-5.1); SODIUM 148 MMOL/L (135-145); TOTAL CARBON DIOXIDE 23.1 MMOL/L (24-32); TOTAL PROTEIN 6.2 G/DL (6.4-8.2); eGFR 58 ML/MIN
[2018-10-23 07:01] VITALS: BP 120/91
--- NOTE | 2018-10-23 12:04 | NUR ---
Reassessment: Pt Na down to 148 from admit on D5 at 50ml/hr w/ electrolyte replacement per protocol. Remains NPO and futile to get swallow eval r/t ALOC remains confused w/ dementia, UTI, and also on 15L mask unable to remove or status declines per RN. Pt was on comfort care at home but remains DNR here; social service consult pending. RD d/w RN given pt d/c from prior admit on pureed/nectar thick diet. Will monitor for diet advancement and any changes in code status. Will need BSS if to remain NPO this admit in order to provide some nutrition. Recommend: 1. BSS prior to diet advancement and advance diet as medically indicated per SLIP LASTER recs 2. If SLIP LASTER recommends nectar thick liquid patient's family may benefit from education on nectar thick liquid fluid options to prevent dehydration 3. ONS when diet is advanced 4. Weekly wts 5. Monitor for change in code status Addendum: 10/23/18 at [address] Amended: Links added.
[2018-10-23 18:00] VITALS: BP 110/85
[2018-10-23 22:00] VITALS: BP 118/79
--- NOTE | 2018-10-24 01:42 | NUR ---
changed ventri mask flow from orange to pink FIO2 40%. after 10min O2 sat 95%
[2018-10-24] MEDS: ampicillin inj 1 GM in normal saline 100ml IV soln 100 ML IV SCH ×4 (02:04→21:18)
[2018-10-24 06:16] LABS: MAGNESIUM 1.7 MG/DL (1.5-2.4)
[2018-10-24 06:20] LABS: POTASSIUM 2.5 MMOL/L (3.5-5.1)
--- NOTE | 2018-10-24 06:22 | NUR ---
Problems reprioritized. Patient report given, questions answered & plan of care reviewed with ministerio Chawla.
[2018-10-24 06:54] VITALS: BP 154/82
[2018-10-24] MEDS: potassium Cl 40MEQ/NS 500ml 500 ML IV PRN (07:45)
[2018-10-24 11:29] VITALS: BP 154/68
[2018-10-24] MEDS: dextrose 5%-water 1,000 ML IV SCH ×2 (11:51→23:53)
--- NOTE | 2018-10-24 12:15 | NUR ---
Jagdish trigger: Elvin BRADEN remains NPO w/ daughter to bring in pureed foods in attempt to feed her though pt is actively declining per RN report on 15L oxygen. Addendum: 10/24/18 at [address] Amended: Links added.
[2018-10-24 17:00] VITALS: BP 176/91
--- NOTE | 2018-10-24 18:34 | NUR ---
Patient in room ORTHO 4023. I have received report from Cammy HAMMOND and had the opportunity to ask questions and assume patient care. Patient resting in no apparent distress with venturi mask 15L oxygen. Will continue to monitor.
--- NOTE | 2018-10-24 20:00 | NUR ---
Patient is receiving last dose of potassium needed for replacement. Will have labs drawn with am labs. Will continue to monitor.
[2018-10-24 22:00] VITALS: BP 134/66
[2018-10-25] MEDS: ampicillin inj 1 GM in normal saline 100ml IV soln 100 ML IV SCH ×4 (02:31→20:41)
[2018-10-25 06:07] LABS: MAGNESIUM 1.6 MG/DL (1.5-2.4)
--- NOTE | 2018-10-25 06:11 | NUR ---
Problems reprioritized. Patient report given, questions answered & plan of care reviewed with Kena HAMMOND. Patient resting eyes closed respirations even.
[2018-10-25 06:35] LABS: POTASSIUM 2.9 MMOL/L (3.5-5.1)
[2018-10-25 07:08] LABS: ALANINE AMINOTRANSFERASE 37 U/L (12-78); ALBUMIN 2.1 G/DL (3.4-5.0); ALBUMIN/GLOBULIN RATIO 0.5 (1.1-1.5); ALKALINE PHOSPHATASE 57 IU/L (46-116); ANION GAP 13 (8-16); ASPARTATE AMINO TRANSFERASE 76 U/L (10-37); BILIRUBIN,TOTAL 0.7 MG/DL (0.1-1.0); BLOOD UREA NITROGEN 10 MG/DL (7-18); CALCIUM 7.5 MG/DL (8.5-10.1); CHLORIDE 108 MMOL/L (99-107); CREATININE 0.83 MG/DL (0.40-0.90); GLUCOSE 90 MG/DL (70-104); SODIUM 143 MMOL/L (135-145); TOTAL CARBON DIOXIDE 22.2 MMOL/L (24-32); TOTAL PROTEIN 6.4 G/DL (6.4-8.2); eGFR 66 ML/MIN
[2018-10-25] MEDS: potassium Cl 40MEQ/NS 500ml 500 ML IV PRN ×2 (07:31→11:43)
--- NOTE | 2018-10-25 09:26 | NUR ---
SS made attempt to provide psychosocial assessment, however pt is unresponsive. Met w/CM to gather info re pt's progress, prognosis and dcp. Per consutation w/CM, pt's family is having a hard time accepting pt's current status and prognosis at this time and are resistant to discussion of care options. Plan: SS to engage family support sxs in working thru their resistance and move them towards planning for pt's dcp.
[2018-10-25 09:48] LABS: BASOPHILS % (AUTO) 0 % (0-1); EOSINOPHILS # (AUTO) 0.1 X10'3 (0-0.9); EOSINOPHILS % (AUTO) 2.2 % (0-6); HEMATOCRIT 29.3 % (35.0-45.0); HEMOGLOBIN 9.5 g/dl (12.0-16.0); LYMPHOCYTES # (AUTO) 0.6 X10'3 (1.1-4.8); LYMPHOCYTES % (AUTO) 12.4 % (21-51); MEAN CORPUSCULAR HEMOGLOBIN 28.1 PG (27.0-31.0); MEAN CORPUSCULAR HGB CONC 32.3 % (33.0-36.5); MEAN PLATELET VOLUME 8.3 FL (7.4-10.4); MONOCYTES # (AUTO) 0.2 X10'3 (0-0.9); MONOCYTES % (AUTO) 4.3 % (2-12); NEUTROPHILS # (AUTO) 3.9 X10'3 (1.8-7.7); NEUTROPHILS % (AUTO) 81.1 % (42-75); PLATELET COUNT 329 X10'3 (140-440); RED BLOOD COUNT 3.37 X10'6 (4.20-5.60); WHITE BLOOD COUNT 4.8 X10'3 (4.5-11.0)
[2018-10-25 18:00] VITALS: BP 144/65
--- NOTE | 2018-10-25 18:35 | NUR ---
Received report from Kena HAMMOND, assumed care of patient.
--- NOTE | 2018-10-25 19:12 | NUR ---
Spoke with Daughter Shelia on the phone who stated she will be here tomorrow to she her mother. She was updated on her current status of no change in condition. Informed Shelia that the doctor would like for the family to make a decision regarding possible comfort care management for the patient.
[2018-10-25 22:00] VITALS: BP 134/95
[2018-10-26] MEDS: morphine 10mg/0.5ml (conc. morphine) oral syringe PO PRN ×3 (00:39→19:47)
--- NOTE | 2018-10-26 00:51 | NUR ---
pt anxious, trying to sit up. repositioned. respirations 22-26, sats 80-95% on venti mask. morphine given. will continue to monitor for anxiety
[2018-10-26] MEDS: ampicillin inj 1 GM in normal saline 100ml IV soln 100 ML IV SCH ×5 (02:30→22:16)
[2018-10-26] MEDS: dextrose 5%-water 1,000 ML IV SCH (02:30)
[2018-10-26 06:00] VITALS: BP 123/52
--- NOTE | 2018-10-26 06:19 | NUR ---
Report given to Ana HAMMOND.
--- NOTE | 2018-10-26 06:25 | NUR ---
Patient in room ORTHO 4023. I have received report from Marisel Rubin RN and had the opportunity to ask questions and assume patient care.
[2018-10-26 07:41] LABS: ALANINE AMINOTRANSFERASE 30 U/L (12-78); ALBUMIN 1.8 G/DL (3.4-5.0); ALBUMIN/GLOBULIN RATIO 0.5 (1.1-1.5); ALKALINE PHOSPHATASE 56 IU/L (46-116); ANION GAP 9 (8-16); ASPARTATE AMINO TRANSFERASE 64 U/L (10-37); BILIRUBIN,TOTAL 0.5 MG/DL (0.1-1.0); BLOOD UREA NITROGEN 8 MG/DL (7-18); BUN/CREATININE RATIO 10.8 (6.6-38.0); CALCIUM 7.2 MG/DL (8.5-10.1); CHLORIDE 108 MMOL/L (99-107); CREATININE 0.74 MG/DL (0.40-0.90); GLUCOSE 98 MG/DL (70-104); MAGNESIUM 1.6 MG/DL (1.5-2.4); SODIUM 140 MMOL/L (135-145); TOTAL CARBON DIOXIDE 22.9 MMOL/L (24-32); TOTAL PROTEIN 5.6 G/DL (6.4-8.2); eGFR 76 ML/MIN
[2018-10-26 09:48] LABS: BASOPHILS % (AUTO) 0.6 % (0-1); EOSINOPHILS # (AUTO) 0.1 X10'3 (0-0.9); EOSINOPHILS % (AUTO) 1.5 % (0-6); HEMATOCRIT 33.4 % (35.0-45.0); HEMOGLOBIN 10.5 g/dl (12.0-16.0); LYMPHOCYTES # (AUTO) 1.6 X10'3 (1.1-4.8); LYMPHOCYTES % (AUTO) 26.5 % (21-51); MEAN CORPUSCULAR HEMOGLOBIN 27.8 PG (27.0-31.0); MEAN CORPUSCULAR HGB CONC 31.5 % (33.0-36.5); MEAN CORPUSCULAR VOLUME 88.3 FL (78-98); MEAN PLATELET VOLUME 8.6 FL (7.4-10.4); MONOCYTES # (AUTO) 0.5 X10'3 (0-0.9); MONOCYTES % (AUTO) 7.8 % (2-12); NEUTROPHILS # (AUTO) 3.9 X10'3 (1.8-7.7); NEUTROPHILS % (AUTO) 63.6 % (42-75); PLATELET COUNT 380 X10'3 (140-440); RED BLOOD COUNT 3.78 X10'6 (4.20-5.60); RED CELL DISTRIBUTION WIDTH 19.6 % (11.5-14.5); WHITE BLOOD COUNT 6.2 X10'3 (4.5-11.0)
[2018-10-26 10:00] VITALS: BP 47/26
--- NOTE | 2018-10-26 11:44 | NUR ---
Reassessment: Pt remains NPO w/ AOx1. Daughter still brings pureed foods applesauce and juice from home in attempts to feed; [facility]CO d/w RN given we can provide pureed foods w/ proper diet order per MD. Na down to 140 from 162 on admit. LBM 10/25. Family still deciding DNR vs hospice per MD note. Will monitor for changes in code status. Recommend: 1. BSS prior to diet advancement and advance diet as medically indicated per ENTRY LEVEL INSTALLATION TECHNICIAN recs 2. If ENTRY LEVEL INSTALLATION TECHNICIAN recommends nectar thick liquid patient's family may benefit from education on nectar thick liquid fluid options to prevent dehydration 3. ONS when diet is advanced 4. Weekly wts 5. Monitor for change in code status Addendum: 10/26/18 at [address] Amended: Links added.
[2018-10-26 18:00] VITALS: BP 144/62
--- NOTE | 2018-10-26 18:27 | NUR ---
Problems reprioritized. Patient report given, questions answered & plan of care reviewed with Shannon HAMMOND.
--- NOTE | 2018-10-26 18:31 | NUR ---
Patient in room ORTHO 4023. I have received report from Ana HAMMOND and had the opportunity to ask questions and assume patient care.
--- NOTE | 2018-10-26 20:40 | NUR ---
Spoke with daughter Shelia on the phone. Daughter is upset that we are not feeding her mother. Patient is still NPO. I informed the daughter to check in with the nurse when she arrives in the AM.
[2018-10-26 22:00] VITALS: BP 97/35
[2018-10-27] MEDS: dextrose 5%-water 1,000 ML IV SCH (01:47)
[2018-10-27] MEDS: ampicillin inj 1 GM in normal saline 100ml IV soln 100 ML IV SCH ×2 (03:13→07:49)
[2018-10-27] MEDS: morphine 10mg/0.5ml (conc. morphine) oral syringe PO PRN (05:28)
[2018-10-27 06:00] VITALS: BP 113/93
--- NOTE | 2018-10-27 06:36 | NUR ---
Problems reprioritized. Patient report given, questions answered & plan of care reviewed with Ana HAMMOND.
[2018-10-27 08:37] LABS: ALANINE AMINOTRANSFERASE 31 U/L (12-78); ALBUMIN/GLOBULIN RATIO 0.5 (1.1-1.5); ALKALINE PHOSPHATASE 62 IU/L (46-116); ANION GAP 7 (8-16); ASPARTATE AMINO TRANSFERASE 49 U/L (10-37); BILIRUBIN,TOTAL 0.4 MG/DL (0.1-1.0); BLOOD UREA NITROGEN 6 MG/DL (7-18); BUN/CREATININE RATIO 7.5 (6.6-38.0); CALCIUM 7.6 MG/DL (8.5-10.1); CHLORIDE 106 MMOL/L (99-107); GLUCOSE 102 MG/DL (70-104); MAGNESIUM 1.5 MG/DL (1.5-2.4); POTASSIUM 3.8 MMOL/L (3.5-5.1); SODIUM 140 MMOL/L (135-145); TOTAL CARBON DIOXIDE 27.4 MMOL/L (24-32); TOTAL PROTEIN 6.2 G/DL (6.4-8.2); eGFR 69 ML/MIN
[2018-10-27 08:43] LABS: BASOPHILS % (AUTO) 0 % (0-1); EOSINOPHILS # (AUTO) 0.1 X10'3 (0-0.9); EOSINOPHILS % (AUTO) 1.8 % (0-6); HEMATOCRIT 29.9 % (35.0-45.0); HEMOGLOBIN 9.7 g/dl (12.0-16.0); LYMPHOCYTES # (AUTO) 0.9 X10'3 (1.1-4.8); LYMPHOCYTES % (AUTO) 16.1 % (21-51); MEAN CORPUSCULAR HEMOGLOBIN 28.3 PG (27.0-31.0); MEAN CORPUSCULAR HGB CONC 32.3 % (33.0-36.5); MEAN CORPUSCULAR VOLUME 87.6 FL (78-98); MEAN PLATELET VOLUME 8.6 FL (7.4-10.4); MONOCYTES # (AUTO) 0.3 X10'3 (0-0.9); MONOCYTES % (AUTO) 5.8 % (2-12); NEUTROPHILS # (AUTO) 4.1 X10'3 (1.8-7.7); NEUTROPHILS % (AUTO) 76.3 % (42-75); PLATELET COUNT 397 X10'3 (140-440); RED BLOOD COUNT 3.42 X10'6 (4.20-5.60); RED CELL DISTRIBUTION WIDTH 19.3 % (11.5-14.5); WHITE BLOOD COUNT 5.3 X10'3 (4.5-11.0)
--- NOTE | 2018-10-27 12:48 | NUR ---
[id number] Micheline Del Valle. Family is here wanting to talk to the DrYane if you're available. Thank You. Ana [phone]
[2018-10-27 18:00] VITALS: BP 131/46
--- NOTE | 2018-10-27 18:20 | NUR ---
Problems reprioritized. Patient report given, questions answered & plan of care reviewed with Shannon HAMMOND.
--- NOTE | 2018-10-27 18:22 | NUR ---
Patient in room ORTHO 4023. I have received report from Ana HAMMOND and had the opportunity to ask questions and assume patient care.
[2018-10-27 22:00] VITALS: BP 131/55
[2018-10-28 06:00] VITALS: BP 121/55
--- NOTE | 2018-10-28 06:32 | NUR ---
Problems reprioritized. Patient report given, questions answered & plan of care reviewed with Ana HAMMOND.
[2018-10-28] MEDS: morphine 10mg/0.5ml (conc. morphine) oral syringe PO PRN ×2 (07:35→15:05)
[2018-10-28 07:46] LABS: BASOPHILS % (AUTO) 0 % (0-1); EOSINOPHILS # (AUTO) 0.1 X10'3 (0-0.9); EOSINOPHILS % (AUTO) 2.2 % (0-6); HEMATOCRIT 28.9 % (35.0-45.0); HEMOGLOBIN 9.3 g/dl (12.0-16.0); LYMPHOCYTES # (AUTO) 0.7 X10'3 (1.1-4.8); LYMPHOCYTES % (AUTO) 14.9 % (21-51); MEAN CORPUSCULAR HEMOGLOBIN 28.2 PG (27.0-31.0); MEAN CORPUSCULAR HGB CONC 32.1 % (33.0-36.5); MEAN CORPUSCULAR VOLUME 87.7 FL (78-98); MEAN PLATELET VOLUME 8.5 FL (7.4-10.4); MONOCYTES # (AUTO) 0.3 X10'3 (0-0.9); NEUTROPHILS # (AUTO) 3.7 X10'3 (1.8-7.7); NEUTROPHILS % (AUTO) 76.9 % (42-75); PLATELET COUNT 383 X10'3 (140-440); RED BLOOD COUNT 3.29 X10'6 (4.20-5.60); RED CELL DISTRIBUTION WIDTH 19.7 % (11.5-14.5); WHITE BLOOD COUNT 4.9 X10'3 (4.5-11.0)
[2018-10-28 08:14] LABS: ALANINE AMINOTRANSFERASE 32 U/L (12-78); ALBUMIN 2.1 G/DL (3.4-5.0); ALBUMIN/GLOBULIN RATIO 0.5 (1.1-1.5); ALKALINE PHOSPHATASE 61 IU/L (46-116); ANION GAP 10 (8-16); ASPARTATE AMINO TRANSFERASE 51 U/L (10-37); BILIRUBIN,TOTAL 0.4 MG/DL (0.1-1.0); BLOOD UREA NITROGEN 6 MG/DL (7-18); BUN/CREATININE RATIO 7.9 (6.6-38.0); CALCIUM 7.7 MG/DL (8.5-10.1); CHLORIDE 107 MMOL/L (99-107); CREATININE 0.76 MG/DL (0.40-0.90); GLUCOSE 77 MG/DL (70-104); POTASSIUM 3.6 MMOL/L (3.5-5.1); SODIUM 142 MMOL/L (135-145); TOTAL CARBON DIOXIDE 25.3 MMOL/L (24-32); TOTAL PROTEIN 6.1 G/DL (6.4-8.2); eGFR 73 ML/MIN
[2018-10-28 10:00] VITALS: BP 127/51
--- NOTE | 2018-10-28 16:25 | NUR ---
Paged Dr Madrigal: Ortho [id number] Micheline Del Valle. pt very restless, even after roxanol. Also, daughter wanting xray of pelvis. Ana [phone]
[2018-10-28 18:00] VITALS: BP 135/51
--- NOTE | 2018-10-28 18:13 | NUR ---
Problems reprioritized. Patient report given, questions answered & plan of care reviewed with Shannon HAMMOND.
--- NOTE | 2018-10-28 18:32 | NUR ---
Patient in room ORTHO 4023. I have received report from Ana HAMMOND and had the opportunity to ask questions and assume patient care.
[2018-10-28 22:00] VITALS: BP 122/65
[2018-10-29 06:00] VITALS: BP 118/64
--- NOTE | 2018-10-29 06:32 | NUR ---
Problems reprioritized. Patient report given, questions answered & plan of care reviewed with Kori HAMMOND.
[2018-10-29 06:41] LABS: BASOPHILS % (AUTO) 0 % (0-1); EOSINOPHILS # (AUTO) 0.1 X10'3 (0-0.9); EOSINOPHILS % (AUTO) 1.4 % (0-6); HEMATOCRIT 29.9 % (35.0-45.0); HEMOGLOBIN 9.5 g/dl (12.0-16.0); LYMPHOCYTES # (AUTO) 0.6 X10'3 (1.1-4.8); LYMPHOCYTES % (AUTO) 12.9 % (21-51); MEAN CORPUSCULAR HGB CONC 31.8 % (33.0-36.5); MEAN CORPUSCULAR VOLUME 88.1 FL (78-98); MEAN PLATELET VOLUME 8.4 FL (7.4-10.4); MONOCYTES # (AUTO) 0.3 X10'3 (0-0.9); MONOCYTES % (AUTO) 5.6 % (2-12); NEUTROPHILS % (AUTO) 80.1 % (42-75); PLATELET COUNT 387 X10'3 (140-440); RED BLOOD COUNT 3.39 X10'6 (4.20-5.60)
[2018-10-29 06:53] LABS: ALANINE AMINOTRANSFERASE 32 U/L (12-78); ALBUMIN 2.1 G/DL (3.4-5.0); ALBUMIN/GLOBULIN RATIO 0.5 (1.1-1.5); ALKALINE PHOSPHATASE 68 IU/L (46-116); ANION GAP 6 (8-16); ASPARTATE AMINO TRANSFERASE 60 U/L (10-37); BILIRUBIN,TOTAL 0.4 MG/DL (0.1-1.0); BLOOD UREA NITROGEN 8 MG/DL (7-18); BUN/CREATININE RATIO 9.9 (6.6-38.0); CALCIUM 7.9 MG/DL (8.5-10.1); CHLORIDE 108 MMOL/L (99-107); CREATININE 0.81 MG/DL (0.40-0.90); GLUCOSE 79 MG/DL (70-104); POTASSIUM 3.9 MMOL/L (3.5-5.1); SODIUM 142 MMOL/L (135-145); TOTAL CARBON DIOXIDE 28.1 MMOL/L (24-32); TOTAL PROTEIN 6.4 G/DL (6.4-8.2); eGFR 68 ML/MIN
[2018-10-29 07:24] LABS: ANISOCYTOSIS 2+; HYPOCHROMASIA 1+; PLATELET ESTIMATE NORMAL; POLYCHROMASIA FEW; TARGET CELLS FEW
[2018-10-29 10:00] VITALS: BP 118/69
--- NOTE | 2018-10-29 11:41 | NUR ---
Reassessment: Pt advanced to pureed diet w/ PIN WORKER pending per RN; RN agrees to order today in order to determine proper liquid consistency currently tolerating thins per RN BSS. Pt was previously on pureed/nectar prior admit. PO 0-25% meals w/ RN feeders. LBM 10/25. Will monitor for PIN WORKER recs following BSS and continue to monitor for ONS needs given proper liquid consistency. Recommend: 1. BSS prior to diet advancement and advance diet as medically indicated per PIN WORKER recs 2. If PIN WORKER recommends nectar thick liquid patient's family may benefit from education on nectar thick liquid fluid options to prevent dehydration 3. ONS when diet is advanced w/ PIN WORKER liquid consistency 4. Weekly wts 5. Consider appetite stimulant per MD approval given FTT 6. Monitor for change in code status Addendum: 10/29/18 at [address] Amended: Links added.
[2018-10-29] MEDS: morphine 10mg/0.5ml (conc. morphine) oral syringe PO PRN ×2 (14:05→22:15)
[2018-10-29] MEDS: enoxaparin 40mg/0.4ml syringe SUBCUT SCH (16:11)
[2018-10-29 18:00] VITALS: BP 106/49
[2018-10-29] MEDS: lactose-reduced food (Ensure Enlive) - 237ml bottle PO SCH (18:00)
--- NOTE | 2018-10-29 18:17 | NUR ---
Problems reprioritized. Patient report given, questions answered & plan of care reviewed with Molly HAMMOND.
[2018-10-29 22:00] VITALS: BP 138/48
--- NOTE | 2018-10-29 22:00 | NUR ---
repositioned patient. noted pt able to eat some dinner with assistance. oral roxinol given.
--- NOTE | 2018-10-29 22:00 | NUR ---
found pt's dentures, cleaned with peroxide and baking soda. packed up pt's belonging with her into boxes. pt very anxious to get discharged Addendum: 10/30/18 at 0622 by Molly Solis RN wrong pt. disregard
--- NOTE | 2018-10-30 05:00 | NUR ---
found pt with oxygen off. tested sats and found 99% on RA when fingers warm and pulse accurate.
[2018-10-30 06:00] VITALS: BP 133/45
--- NOTE | 2018-10-30 06:18 | NUR ---
reported to days. noted pt anticipates discharge today, but no transportation or destination completely decided. Addendum: 10/30/18 at 0622 by Molly Solis RN wrong patient. disregard
[2018-10-30 06:19] LABS: ALBUMIN 1.9 G/DL (3.4-5.0); ANION GAP 5 (8-16); BLOOD UREA NITROGEN 14 MG/DL (7-18); BUN/CREATININE RATIO 16.3 (6.6-38.0); CALCIUM 7.4 MG/DL (8.5-10.1); CHLORIDE 109 MMOL/L (99-107); CREATININE 0.86 MG/DL (0.40-0.90); GLUCOSE 101 MG/DL (70-104); POTASSIUM 3.7 MMOL/L (3.5-5.1); SODIUM 144 MMOL/L (135-145); TOTAL CARBON DIOXIDE 29.7 MMOL/L (24-32); eGFR 64 ML/MIN
[2018-10-30] MEDS: enoxaparin 40mg/0.4ml syringe SUBCUT SCH (07:27)
[2018-10-30] MEDS: lactose-reduced food (Ensure Enlive) - 237ml bottle PO SCH ×3 (08:00→18:30)
[2018-10-30 10:00] VITALS: BP 131/74
[2018-10-30 18:00] VITALS: BP 120/50
--- NOTE | 2018-10-30 18:12 | NUR ---
Problems reprioritized. Patient report given, questions answered & plan of care reviewed with Marisel Rubin RN.
[2018-10-30 22:00] VITALS: BP 135/63
--- NOTE | 2018-10-31 06:23 | NUR ---
Report given to Chetna HAMMOND.
--- NOTE | 2018-10-31 06:33 | NUR ---
received report from Marisel HAMMOND
[2018-10-31] MEDS: enoxaparin 40mg/0.4ml syringe SUBCUT SCH (08:06)
[2018-10-31] MEDS: lactose-reduced food (Ensure Enlive) - 237ml bottle PO SCH ×3 (08:30→18:15)
[2018-10-31 08:38] VITALS: BP_SYST 142; BP_SYST 72; BP_DIAS 72
[2018-10-31 10:00] VITALS: BP 98/51
--- NOTE | 2018-10-31 11:18 | NUR ---
Reassessment: Pt on pureed/thin diet PO 25-50% meals w/ feeder and ensure enlive added TIDWM good diven emaciated state and current wt; meeting current wt needs but not IBW needs. Adult FTT per MD note. LBM 10/30. Skin currently intact w/ Jagdish 11. Will continue to monitor. Recommend: 1. continue pureed/thin liquid diet per ASSEMBLER TRUCK TRAILER 2. Ensure Enlive TIDWM 3. Weekly wts 4. encourage PO w/ feeder 5. Monitor for changes in code status Addendum: 10/31/18 at [address] Amended: Links added.
[2018-10-31] MEDS ORDERED: LORazepam 2 mg/ml vial IV PRN (13:35)
[2018-10-31 18:00] VITALS: BP 98/64
[2018-10-31 22:00] VITALS: BP 121/52
[2018-11-01 06:00] VITALS: BP 132/67
--- NOTE | 2018-11-01 06:15 | NUR ---
Patient in room ORTHO 4020. I have received report from VICKI HAMMOND and had the opportunity to ask questions and assume patient care.
[2018-11-01 06:16] LABS: ANION GAP 6 (8-16); BLOOD UREA NITROGEN 22 MG/DL (7-18); BUN/CREATININE RATIO 27.8 (6.6-38.0); CALCIUM 7.6 MG/DL (8.5-10.1); CHLORIDE 107 MMOL/L (99-107); CREATININE 0.79 MG/DL (0.40-0.90); GLUCOSE 78 MG/DL (70-104); POTASSIUM 3.8 MMOL/L (3.5-5.1); SODIUM 141 MMOL/L (135-145); TOTAL CARBON DIOXIDE 27.9 MMOL/L (24-32); eGFR 70 ML/MIN
--- NOTE | 2018-11-01 06:23 | NUR ---
Report given to Lang HAMMOND.
[2018-11-01] MEDS: enoxaparin 40mg/0.4ml syringe SUBCUT SCH (08:37)
[2018-11-01] MEDS: lactose-reduced food (Ensure Enlive) - 237ml bottle PO SCH ×3 (08:37→18:00)
[2018-11-01 18:00] VITALS: BP 110/52
--- NOTE | 2018-11-01 18:10 | NUR ---
Problems reprioritized. Patient report given, questions answered & plan of care reviewed with DESTINY HAMMOND.
--- NOTE | 2018-11-01 18:14 | NUR ---
Patient in room ORTHO 4020. I have received report from ministerio Croft and had the opportunity to ask questions and assume patient care.
[2018-11-01] MEDS: oxcarbazepine 150mg tablet PO SCH (20:04)
[2018-11-01 22:00] VITALS: BP 115/43
[2018-11-02 06:00] VITALS: BP 136/46
--- NOTE | 2018-11-02 06:28 | NUR ---
Problems reprioritized. Patient report given, questions answered & plan of care reviewed with STEPHANY ROOT.
--- NOTE | 2018-11-02 06:30 | NUR ---
Patient in room ORTHO 4020. I have received report from Anna and had the opportunity to ask questions and assume patient care.
[2018-11-02] MEDS: enoxaparin 40mg/0.4ml syringe SUBCUT SCH (08:19)
[2018-11-02] MEDS: lactose-reduced food (Ensure Enlive) - 237ml bottle PO SCH ×3 (08:19→18:00)
[2018-11-02 10:00] VITALS: BP 130/64
--- NOTE | 2018-11-02 11:29 | NUR ---
Reassessment: Pt PO improved to 75% avg meals past 24 hours w/ 50% of ONS w/ feeder. RN reports pt enjoys ensure enlive currently. LBM 10/29. [facility] [employer] for MVI given low intake hx, age, and L hip PU now documented in EMR; Jagdish 11. AOx1 w/ CVA dementia and adult FTT per MD. Will continue to monitor for additional PO hx and ONS needs. Recommend: 1. continue pureed/thin liquid diet per GEOSPATIAL SCIENTIST 2. Ensure Enlive TIDWM 3. Weekly wts 4. encourage PO w/ feeder 5. Monitor for changes in code status Addendum: 11/02/18 at [address] Amended: Links added.
--- NOTE | 2018-11-02 12:47 | NUR ---
Problems reprioritized. Patient report given, questions answered & plan of care reviewed with Ana.
[2018-11-02 18:00] VITALS: BP 106/68
--- NOTE | 2018-11-02 18:14 | NUR ---
Problems reprioritized. Patient report given, questions answered & plan of care reviewed with Shannon HAMMOND.
--- NOTE | 2018-11-02 18:24 | NUR ---
Patient in room ORTHO 4020. I have received report from Ana HAMMOND and had the opportunity to ask questions and assume patient care.
[2018-11-02] MEDS: oxcarbazepine 150mg tablet PO SCH (20:41)
[2018-11-02 22:00] VITALS: BP 129/70
[2018-11-03 06:00] VITALS: BP 102/74
--- NOTE | 2018-11-03 06:10 | NUR ---
Patient in room ORTHO 4020. I have received report from Shannon HAMMOND and had the opportunity to ask questions and assume patient care.
--- NOTE | 2018-11-03 06:10 | NUR ---
Problems reprioritized. Patient report given, questions answered & plan of care reviewed with Ana HAMMOND.
[2018-11-03] MEDS: enoxaparin 40mg/0.4ml syringe SUBCUT SCH (07:28)
[2018-11-03] MEDS: lactose-reduced food (Ensure Enlive) - 237ml bottle PO SCH ×3 (08:00→18:00)
[2018-11-03 10:00] VITALS: BP 108/81
[2018-11-03] MEDS ORDERED: magnesium hydroxide 30ml (MOM) UD suspension PO PRN (16:00)
[2018-11-03] MEDS ORDERED: bisacodyl 10mg suppository rectal RC PRN (16:00)
[2018-11-03] MEDS: acetaminophen 650mg rectal suppository RC PRN ×2 (16:56→23:24)
[2018-11-03 18:00] VITALS: BP 116/66
--- NOTE | 2018-11-03 18:10 | NUR ---
Problems reprioritized. Patient report given, questions answered & plan of care reviewed with Shannon HAMMOND.
--- NOTE | 2018-11-03 18:30 | NUR ---
Patient in room ORTHO 4020. I have received report from Ana HAMMOND and had the opportunity to ask questions and assume patient care.
[2018-11-03] MEDS: oxcarbazepine 150mg tablet PO SCH (21:09)
[2018-11-03 22:00] VITALS: BP 133/73
[2018-11-04 06:00] VITALS: BP 126/47
--- NOTE | 2018-11-04 06:06 | NUR ---
Patient in room ORTHO 4020. I have received report from Shannon HAMMOND and had the opportunity to ask questions and assume patient care.
--- NOTE | 2018-11-04 06:29 | NUR ---
Problems reprioritized. Patient report given, questions answered & plan of care reviewed with Ana HAMMOND.
[2018-11-04] MEDS: lactose-reduced food (Ensure Enlive) - 237ml bottle PO SCH ×2 (08:34→13:00)
[2018-11-04] MEDS: enoxaparin 40mg/0.4ml syringe SUBCUT SCH (08:34)
[2018-11-04 10:00] VITALS: BP 108/70
--- NOTE | 2018-11-04 17:44 | NUR ---
Paged Dr Fonseca. Ortho [id number] Micheline Rodriguez daughter has not picked up patient. Tried calling, no answer. Gilbert [phone]
--- NOTE | 2018-11-04 18:28 | NUR ---
Patient/family refused wound photos. Wounds prior to admit. Addendum: 11/04/18 at 1829 by Ana Allred RN Amended: Links added.
--- NOTE | 2018-11-04 18:35 | NUR ---
Patient/family refused wound photos. Wounds prior to admit Addendum: 11/04/18 at 1836 by Ana Allred RN Amended: Links added.
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
--- NOTE | 2018-11-04 18:44 | NUR ---
Problems reprioritized. Patient report given, questions answered & plan of care reviewed with Shannon HAMMOND.
--- NOTE | 2018-11-04 18:45 | NUR ---
Patient discharged home with daughter today. All discharge instructions given with daughter. All belongings sent home with patient. Patient discharged at 18:35
== END 2018-11-04 18:35 | disposition home health service (06) | DRG 682 ==
LOC: ER 20:14 → ED HOLD 23:56 → EDBEDREQ 10-19 18:47 → ORTHO 4S 10-19 21:11
PROVIDERS: ADMIT Internal Medicine; ATTEND Internal Medicine
DX: N17.0 Acute kidney failure with tubular necrosis (principal); E43 Unspecified severe protein-calorie malnutrition; J96.01 Acute respiratory failure with hypoxia; E87.0 Hyperosmolality and hypernatremia; R64 Cachexia; I69.351 Hemiplegia and hemiparesis following cerebral infarction affecting right dominant side; N39.0 Urinary tract infection, site not specified; Z68.1 Body mass index [BMI] 19.9 or less, adult; E86.0 Dehydration; I69.320 Aphasia following cerebral infarction; E78.00 Pure hypercholesterolemia, unspecified; E87.6 Hypokalemia; F03.90 Unspecified dementia, unspecified severity, without behavioral disturbance, psychotic disturbance, mood disturbance, and anxiety; G40.909 Epilepsy, unspecified, not intractable, without status epilepticus; I10 Essential (primary) hypertension; I48.91 Unspecified atrial fibrillation; K21.9 Gastro-esophageal reflux disease without esophagitis; F41.9 Anxiety disorder, unspecified; R13.10 Dysphagia, unspecified; B95.2 Enterococcus as the cause of diseases classified elsewhere; L89.90 Pressure ulcer of unspecified site, unspecified stage; K59.00 Constipation, unspecified; R62.7 Adult failure to thrive; Z51.5 Encounter for palliative care; Z66 Do not resuscitate; Z87.891 Personal history of nicotine dependence; Z90.710 Acquired absence of both cervix and uterus; Z95.0 Presence of cardiac pacemaker
CPT/HCPCS: 36415; 80048; 80053; 81001; 83735; 84132; 85025; 87070; 87077; 87088; 87186; 92616; 94760; 96360; 97110; 97161; 97530; 99285; G0378; J0290; J1170; J1644; J1650; J2270; J3480; J7030; J7070

== ENCOUNTER 2018-11-16 10:51 | Emergency (ER) | payer MEDICARE, OTHER ==
[~2018-11-16] VITALS: Ht 154.9 cm; Wt 38.0 kg
[~2018-11-16 10:51] MED LIST changes: +ASPI-920 PO; -ASPI81TA46 PO; -CEPH500C5 PO; -DIPY50TA PO; -HYDR-3972 PO; -IPRA4AER IH; -LISI10TA4 PO; +MAGN400O6 PO
--- NOTE | 2018-11-16 11:34 | NUR ---
PHLEBOTOMY UNABLE TO OBTAIN BLOOD FOR LABS.
[2018-11-16 12:27] LABS: BASOPHILS % (AUTO) 0 % (0-1); EOSINOPHILS # (AUTO) 0.1 X10'3 (0-0.9); EOSINOPHILS % (AUTO) 0.5 % (0-6); HEMATOCRIT 30.4 % (35.0-45.0); HEMOGLOBIN 9.6 g/dl (12.0-16.0); LYMPHOCYTES # (AUTO) 0.5 X10'3 (1.1-4.8); LYMPHOCYTES % (AUTO) 3.1 % (21-51); MEAN CORPUSCULAR HEMOGLOBIN 28.2 PG (27.0-31.0); MEAN CORPUSCULAR HGB CONC 31.7 g/dL (33.0-36.5); MEAN CORPUSCULAR VOLUME 89.2 FL (78-98); MEAN PLATELET VOLUME 7.7 FL (7.4-10.4); MONOCYTES # (AUTO) 1.4 X10'3 (0-0.9); MONOCYTES % (AUTO) 8.9 % (2-12); NEUTROPHILS # (AUTO) 13.8 X10'3 (1.8-7.7); NEUTROPHILS % (AUTO) 87.5 % (42-75); PLATELET COUNT 337 X10'3 (140-440); RED CELL DISTRIBUTION WIDTH 21.6 % (11.5-14.5); WHITE BLOOD COUNT 15.8 X10'3 (4.5-11.0)
[2018-11-16] MEDS ORDERED: normal saline 1000ml 1,000 ML IV ONE (12:30)
[2018-11-16 12:41] LABS: PROTHROMBIN TIME 10.5 SECONDS (9.0-12.0)
[2018-11-16] MEDS ORDERED: OLANZapine **IM** 10 mg inj. IM ONE (12:45)
[2018-11-16 12:50] LABS: ALANINE AMINOTRANSFERASE 15 U/L (12-78); ALBUMIN 2.7 G/DL (3.4-5.0); ALBUMIN/GLOBULIN RATIO 0.5 (1.1-1.5); ALKALINE PHOSPHATASE 85 IU/L (46-116); ANION GAP 12 (8-16); ASPARTATE AMINO TRANSFERASE 27 U/L (10-37); BILIRUBIN,TOTAL 0.4 MG/DL (0.1-1.0); BLOOD UREA NITROGEN 24 MG/DL (7-18); BUN/CREATININE RATIO 26.4 (6.6-38.0); CALCIUM 8.5 MG/DL (8.5-10.1); CHLORIDE 111 MMOL/L (99-107); CREATININE 0.91 MG/DL (0.40-0.90); GLUCOSE 86 MG/DL (70-104); LIPASE 112 U/L (73-393); POTASSIUM 3.4 MMOL/L (3.5-5.1); SODIUM 147 MMOL/L (135-145); TOTAL CARBON DIOXIDE 23.8 MMOL/L (24-32); TOTAL PROTEIN 7.9 G/DL (6.4-8.2); eGFR 60 ML/MIN
[2018-11-16 14:22] LABS: ANISOCYTOSIS 3+; PLATELET ESTIMATE NORMAL; TOTAL CELLS COUNTED 100
[2018-11-16 14:23] LABS: TOXIC GRANULATION 1+
[2018-11-16 14:24] LABS: SCHISTOCYTES FEW
--- NOTE | 2018-11-16 15:05 | NUR ---
spoke with daughter on the phone. stated she is on her way to the ed.
[2018-11-16] MEDS ORDERED: ONDA8TAB6 PO (15:11)
[2018-11-16] MEDS ORDERED: BISA-155 PO ×2 (15:11→15:33)
[2018-11-16] MEDS ORDERED: MAGN296S50 PO ×2 (15:11→15:33)
[2018-11-16] MEDS ORDERED: bisacodyl 10mg suppository rectal RC STA (15:33)
[2018-11-16] MEDS ORDERED: LEVO500T2 PO (15:34)
[2018-11-16] MEDS ORDERED: levoFLOXACIN-Levaquin 500mg/D5 100 ML IV ONE (15:35)
[2018-11-16 17:30] VITALS: BP 139/98
== END 2018-11-16 17:39 | disposition home or self-care (01) ==
LOC: ER 10:52
DX: K59.00 Constipation, unspecified (principal); J90 Pleural effusion, not elsewhere classified; R53.1 Weakness; I48.91 Unspecified atrial fibrillation; E78.00 Pure hypercholesterolemia, unspecified; I10 Essential (primary) hypertension; K21.9 Gastro-esophageal reflux disease without esophagitis; J44.9 Chronic obstructive pulmonary disease, unspecified; I25.10 Atherosclerotic heart disease of native coronary artery without angina pectoris; F03.90 Unspecified dementia, unspecified severity, without behavioral disturbance, psychotic disturbance, mood disturbance, and anxiety; Z79.82 Long term (current) use of aspirin; Z79.2 Long term (current) use of antibiotics; Z79.899 Other long term (current) drug therapy; Z86.73 Personal history of transient ischemic attack (TIA), and cerebral infarction without residual deficits; Z86.718 Personal history of other venous thrombosis and embolism; Z95.0 Presence of cardiac pacemaker; Z90.710 Acquired absence of both cervix and uterus
CPT/HCPCS: 36415; 74176; 80053; 83690; 85025; 85610; 96365; 96372; 99284; J1956; J7030

== ENCOUNTER 2018-11-21 15:00 | Emergency (ER) | payer MEDICARE, OTHER ==
[~2018-11-21] VITALS: Ht 154.9 cm; Wt 34.0 kg
[~2018-11-21 15:00] MED LIST changes: +BISA-155 PO; +LEVO500T2 PO; +MAGN296S50 PO
[2018-11-21] MEDS ORDERED: levetiracetam 250mg tablet PO ONE (16:05)
[2018-11-21] MEDS ORDERED: levoFLOXACIN 250mg tablet PO ONE (16:05)
--- NOTE | 2018-11-21 16:10 | NUR ---
dr manzanares spoke with family on phone
--- NOTE | 2018-11-21 16:12 | NUR ---
dr raora ok with oral medications and then discharge home
--- NOTE | 2018-11-21 17:06 | NUR ---
patient took her medications crushed with 120 ml apple sauce pericare: malodorous urine smell, white encrustations in vaginal area: cleaned with warm periwipes, diaper on, bone prominences elevated
--- NOTE | 2018-11-21 17:09 | NUR ---
calling daughter cindy to apple picker [phone] room 128 [facility]
--- NOTE | 2018-11-21 17:12 | NUR ---
daughter just left to order picker her mother
[2018-11-21 17:58] VITALS: BP 115/64
== END 2018-11-21 18:09 | disposition home or self-care (01) ==
LOC: ER 15:02
DX: R56.9 Unspecified convulsions (principal); I48.91 Unspecified atrial fibrillation; E78.00 Pure hypercholesterolemia, unspecified; I10 Essential (primary) hypertension; J44.9 Chronic obstructive pulmonary disease, unspecified; K21.9 Gastro-esophageal reflux disease without esophagitis; Z91.14 Patient's other noncompliance with medication regimen; Z86.73 Personal history of transient ischemic attack (TIA), and cerebral infarction without residual deficits; Z90.710 Acquired absence of both cervix and uterus; Z98.890 Other specified postprocedural states; Z95.0 Presence of cardiac pacemaker; Z79.899 Other long term (current) drug therapy; Z79.82 Long term (current) use of aspirin
CPT/HCPCS: 99284

== ENCOUNTER 2018-12-02 14:45 | Emergency (ER) | payer MEDICARE, OTHER ==
[~2018-12-02] VITALS: Ht 152.4 cm; Wt 40.4 kg
[~2018-12-02 14:45] MED LIST changes: -LEVO500T2 PO
[2018-12-02] MEDS ORDERED: dextrose 50%-water 50ml dispensing syringe IV ONE (14:57)
--- NOTE | 2018-12-02 15:02 | NUR ---
VERBAL FROM DR GURROLA TO ADMIN D50 25GM
[2018-12-02] MEDS ORDERED: normal saline 1000ML IV soln IVB ONE ×2 (15:40→16:55)
[2018-12-02 15:58] LABS: BASOPHILS % (AUTO) 0.4 % (0-1); EOSINOPHILS % (AUTO) 0.7 % (0-6); HEMATOCRIT 34.2 % (35.0-45.0); HEMOGLOBIN 10.6 g/dl (12.0-16.0); LYMPHOCYTES % (AUTO) 15.9 % (21-51); MEAN CORPUSCULAR HEMOGLOBIN 27.3 PG (27.0-31.0); MEAN CORPUSCULAR VOLUME 88.1 FL (78-98); MEAN PLATELET VOLUME 8.8 FL (7.4-10.4); MONOCYTES # (AUTO) 0.2 X10'3 (0-0.9); MONOCYTES % (AUTO) 3.9 % (2-12); NEUTROPHILS % (AUTO) 79.1 % (42-75); PLATELET COUNT 232 X10'3 (140-440); RED BLOOD COUNT 3.88 X10'6 (4.20-5.60); RED CELL DISTRIBUTION WIDTH 19.9 % (11.5-14.5); WHITE BLOOD COUNT 6.3 X10'3 (4.5-11.0)
[2018-12-02 16:07] LABS: ALANINE AMINOTRANSFERASE 11 U/L (12-78); ALBUMIN 2.7 G/DL (3.4-5.0); ALBUMIN/GLOBULIN RATIO 0.6 (1.1-1.5); ALKALINE PHOSPHATASE 80 IU/L (46-116); ANION GAP 8 (8-16); ASPARTATE AMINO TRANSFERASE 20 U/L (10-37); BILIRUBIN,TOTAL 0.3 MG/DL (0.1-1.0); BLOOD UREA NITROGEN 28 MG/DL (7-18); CALCIUM 8.9 MG/DL (8.5-10.1); CHLORIDE 110 MMOL/L (99-107); GLUCOSE 318 MG/DL (70-104); POTASSIUM 3.9 MMOL/L (3.5-5.1); SODIUM 145 MMOL/L (135-145); TOTAL CARBON DIOXIDE 26.8 MMOL/L (24-32); TOTAL PROTEIN 7.6 G/DL (6.4-8.2); eGFR 53 ML/MIN
[2018-12-02 16:16] LABS: ANISOCYTOSIS 2+; HYPOCHROMASIA 1+; PLATELET ESTIMATE NORMAL; POIKILOCYTOSIS 1+; POLYCHROMASIA FEW
--- NOTE | 2018-12-02 17:18 | NUR ---
SPOKE WITH CHRISTINA ALLEN PT DAUGHTER, THEY LIVE AT [facility] [phone]. SHE DOES NOT HAVE A VEHICLE BUT WILL CALL PT'S GRANDDAUGHTER SELWYN TO COME GET PT.
[2018-12-02 17:38] VITALS: BP 110/70
== END 2018-12-02 18:23 | disposition home or self-care (01) ==
LOC: ER 14:45
DX: R41.82 Altered mental status, unspecified (principal); I48.91 Unspecified atrial fibrillation; E78.00 Pure hypercholesterolemia, unspecified; I10 Essential (primary) hypertension; J44.9 Chronic obstructive pulmonary disease, unspecified; K21.9 Gastro-esophageal reflux disease without esophagitis; Z90.710 Acquired absence of both cervix and uterus; Z95.0 Presence of cardiac pacemaker; Z86.73 Personal history of transient ischemic attack (TIA), and cerebral infarction without residual deficits; Z79.82 Long term (current) use of aspirin; Z79.899 Other long term (current) drug therapy
CPT/HCPCS: 36415; 70450; 71045; 80053; 82948; 83605; 84145; 84484; 85025; 87040; 87077; 87186; 93005; 96374; 99284; J7030

== ENCOUNTER 2018-12-21 15:32 | Inpatient (IN) | payer MEDICARE, OTHER | END 2018-12-27 13:30 | disposition hospice, home (50) | LOC: ER 15:32 → ED HOLD 12-22 00:36 → ORTHO 4S 12-22 02:10 | DX: R56.9 Unspecified convulsions (principal); E43 Unspecified severe protein-calorie malnutrition; N17.9 Acute kidney failure, unspecified ==

== ENCOUNTER 2019-01-04 15:28 | Inpatient (IN) | payer MEDICARE, OTHER ==
[~2019-01-04] VITALS: Ht 152.4 cm; Wt 38.0 kg
[~2019-01-04 15:28] MED LIST changes: -ASPI-920 PO; -BISA-155 PO; -DULR RC; -MAGN296S50 PO; -MAGN400O6 PO; -OXCA600T9 PO; -POLY17PO10 PO
--- NOTE | 2019-01-04 15:34 | NUR ---
Dr Nelson at bedside to evaluate pt
[2019-01-04 16:23] LABS: BASOPHILS % (AUTO) 0.9 % (0-1); EOSINOPHILS % (AUTO) 0.6 % (0-6); HEMOGLOBIN 9.8 g/dl (12.0-16.0); LYMPHOCYTES % (AUTO) 19.4 % (21-51); MEAN CORPUSCULAR HEMOGLOBIN 27.9 PG (27.0-31.0); MEAN CORPUSCULAR HGB CONC 31.7 g/dL (33.0-36.5); MEAN CORPUSCULAR VOLUME 87.9 FL (78-98); MEAN PLATELET VOLUME 9.3 FL (7.4-10.4); MONOCYTES # (AUTO) 0.7 X10'3 (0-0.9); MONOCYTES % (AUTO) 13.9 % (2-12); NEUTROPHILS # (AUTO) 3.3 X10'3 (1.8-7.7); NEUTROPHILS % (AUTO) 65.2 % (42-75); PLATELET COUNT 143 X10'3 (140-440); RED BLOOD COUNT 3.53 X10'6 (4.20-5.60); RED CELL DISTRIBUTION WIDTH 20.8 % (11.5-14.5)
[2019-01-04 16:30] LABS: CLARITY,URINE CLOUDY (Clear); COLOR,URINE YELLOW (Yellow); GLUCOSE, URINE NEGATIVE (Neg); KETONES,URINE NEGATIVE (Neg); LEUKOCYTE ESTERASE ,URINE SMALL (Neg); NITRITES, URINE NEGATIVE (Neg); OCCULT BLOOD,URINE LARGE (Neg); PH,URINE 7.5 (4.8-8.0); PROTEIN,URINE 100 mg/dl (Neg); UROBILINOGEN,URINE 0.2 E.U/dL (0.2-1.0)
[2019-01-04 16:32] LABS: ALANINE AMINOTRANSFERASE 29 U/L (12-78); ALBUMIN 2.9 G/DL (3.4-5.0); ALBUMIN/GLOBULIN RATIO 0.7 (1.1-1.5); ALKALINE PHOSPHATASE 94 IU/L (46-116); ANION GAP 8 (8-16); ASPARTATE AMINO TRANSFERASE 39 U/L (10-37); BILIRUBIN,TOTAL 0.2 MG/DL (0.1-1.0); BLOOD UREA NITROGEN 37 MG/DL (7-18); BUN/CREATININE RATIO 31.6 (6.6-38.0); CHLORIDE 111 MMOL/L (99-107); CREATININE 1.17 MG/DL (0.40-0.90); GLUCOSE 67 MG/DL (70-104); SODIUM 147 MMOL/L (135-145); TOTAL CARBON DIOXIDE 28.3 MMOL/L (24-32); TOTAL PROTEIN 7.1 G/DL (6.4-8.2); eGFR 45 ML/MIN
[2019-01-04 16:34] LABS: UA COLLECTION TYPE STRAIGHT CATH
[2019-01-04 16:36] LABS: INR 1.1 INR; PARTIAL THROMBOPLASTIN TIME 32 SECONDS (22-32); PROTHROMBIN TIME 10.7 SECONDS (9.0-12.0)
[2019-01-04 16:44] LABS: SQUAMOUS EPITHELIAL CELL,UR MANY /LPF (FEW); TRIPLE PHOSPHATE CRYST 2+ /HPF (NEGATIVE)
[2019-01-04 16:49] LABS: RBC,URINE 20-50 /HPF (0-2)
[2019-01-04 16:51] LABS: BACTERIA,URINE 4+ /HPF (Neg); MUCUS STRANDS NONE SEEN /LPF (Neg)
[2019-01-04] MEDS ORDERED: normal saline 1000ml 1,000 ML IV ONE (16:55)
[2019-01-04 16:58] LABS: TRANSITIONAL EPI CELLS,URINE FEW /HPF
[2019-01-04 17:00] LABS: AMORPHOUS PHOSPHATES 2+
[2019-01-04] MEDS ORDERED: dextrose 50%-water 50ml dispensing syringe IV ONE (17:00)
--- NOTE | 2019-01-04 17:00 | NUR ---
pt's core temp was 95.6 at triage, when main rn was sent to lunch i asked provider for possible use of libby hugger or warmed fluids he opted for the latter with 500ml of warmed ns and an amp of D50 d/t bs being 67. both were administered and primary rn was informed.
[2019-01-04 17:15] LABS: TOTAL CELLS COUNTED 100
[2019-01-04 17:17] LABS: ANISOCYTOSIS 3+; PLATELET ESTIMATE NORMAL; POIKILOCYTOSIS 1+
--- NOTE | 2019-01-04 17:18 | NUR ---
CALLED THE MESSAGE NUMBER FOR DAUGHTER/JEYSON VASQUEZ, THEY WILL GO DOWN TO [facility] AND TRY TO REACH THEM, I LET THEM KNOW THAT THE PROVIDER WOULD LIKE TO SEE THEM HERE IN THE HOSPITAL
[2019-01-04 17:20] LABS: ELLIPTOCYTES FEW
[2019-01-04 17:21] LABS: BURR CELLS 1+
--- NOTE | 2019-01-04 19:04 | NUR ---
2009 STROKE, NONVERBAL IMMOBILE AFTER THAT WITH SEIZURES. DNR PACEMAKER NOT WORKING ON HOSPICE 2 WEEKS AT MOST. SEEING SERVICE DISPATCHER HERE. POWER OF SPREADER OPERATOR AUTOMATIC CALLER LOST HOME AT 1600 TODAY. SHE IS HOMELESS MED LIST: ATIVAN
[2019-01-04] MEDS ORDERED: LORA1TAB PO (19:07)
--- NOTE | 2019-01-04 19:08 | NUR ---
THAT WAS MILY THAT CALLED WITH THE UPDATE ON HX AND MED LIST
--- NOTE | 2019-01-04 19:34 | NUR ---
REPOSITIONED PATIENT TO HER RIGHT SIDE. PILLOW BEHIND HER BACK AND BETWEEN HER LEGS AND UNDER HER HEAD. SHE OPENED HER EYES BRIEFLY. BEAR HUGGER GOWN PLACED ONTO HER. STOCKINGS APPLIED.
[2019-01-04] MEDS ORDERED: mag hydrox/Alum hydrox/simeth 30ml oral suspension PO PRN (19:45)
[2019-01-04] MEDS ORDERED: magnesium hydroxide 30ml (MOM) UD suspension PO PRN (19:45)
[2019-01-04] MEDS ORDERED: acetaminophen 325mg tablet PO PRN (19:45)
[2019-01-04] MEDS ORDERED: LORazepam 1 MG tablet PO PRN (19:45)
[2019-01-04 21:00] VITALS: BP 138/85
[2019-01-04] MEDS: morphine 10 MG/5 ML UD oral solution PO PRN (21:53)
[2019-01-05] MEDS: morphine 10 MG/5 ML UD oral solution PO PRN ×3 (05:28→19:40)
--- NOTE | 2019-01-05 05:31 | NUR ---
pt was in pain when repositioning. grimaced. but when giving morphine pt pursed lips together and refused. wasted original amount with Madeline in pyxis. wasted rest with STEPHANY Correa as well.
--- NOTE | 2019-01-05 05:56 | NUR ---
reported to days. noted pt turn freq. pictures taken.
[2019-01-05 06:00] VITALS: BP 78/45
--- NOTE | 2019-01-05 06:00 | NUR ---
Patient in room ORTHO 4015. I have received report from ROSAMARIA HAMMOND and had the opportunity to ask questions and assume patient care.
--- NOTE | 2019-01-05 08:42 | NUR ---
Pt comfort care, will continue to follow per protocol. Addendum: 01/05/19 at [address] Amended: Links added.
[2019-01-05 10:00] VITALS: BP 107/75
[2019-01-05] MEDS ORDERED: LORazepam 2 mg/ml vial IV PRN (13:45)
[2019-01-05] MEDS: scopolamine 1.5mg patch.TD72 TD SCH (15:06)
--- NOTE | 2019-01-05 15:29 | NUR ---
PAGER ID: [phone] MESSAGE: [phone] [id number] RE: JOHN [phone] WE DONT HAVE ORDER FOR RN TO PRONOUNCE, DO YOU WANT?
[2019-01-05 18:00] VITALS: BP 118/60
--- NOTE | 2019-01-05 18:00 | NUR ---
Patient in room ORTHO 4015. I have received report from STEPHANY Croft and had the opportunity to ask questions and assume patient care.
--- NOTE | 2019-01-05 18:20 | NUR ---
Problems reprioritized. Patient report given, questions answered & plan of care reviewed with BROOKLYNN HAMMOND.
[2019-01-06 06:00] VITALS: BP 115/76
--- NOTE | 2019-01-06 06:05 | NUR ---
Patient in room ORTHO 4015. I have received report from BROOKLYNN HAMMOND and had the opportunity to ask questions and assume patient care.
--- NOTE | 2019-01-06 06:15 | NUR ---
Problems reprioritized. Patient report given, questions answered & plan of care reviewed with STEPHANY Jeffrey. Addendum: 01/06/19 at 0617 by Ree Diana RN Problems reprioritized. Patient report given, questions answered & plan of care reviewed with STEPHANY Croft.
[2019-01-06 10:00] VITALS: BP 114/67
--- NOTE | 2019-01-06 18:15 | NUR ---
Patient in room ORTHO 4015. I have received report from STEPHANY Croft and had the opportunity to ask questions and assume patient care.
[2019-01-06 22:00] VITALS: BP 96/48
[2019-01-07] MEDS: morphine 10 MG/5 ML UD oral solution PO PRN ×3 (01:49→22:00)
--- NOTE | 2019-01-07 06:18 | NUR ---
Problems reprioritized. Patient report given, questions answered & plan of care reviewed with STEPHANY Escudero.
--- NOTE | 2019-01-07 20:10 | NUR ---
pt's daughter Micheline called to check on her. She is in the middle of moving and she is staying with her friend. her number is [phone]. ill update SBAR.
[2019-01-07 22:00] VITALS: BP 107/70
[2019-01-08] MEDS: morphine 10 MG/5 ML UD oral solution PO PRN (04:20)
--- NOTE | 2019-01-08 06:33 | NUR ---
Problems reprioritized. Patient report given, questions answered & plan of care reviewed with STEPHANY SILVA.
[2019-01-08 10:00] VITALS: BP 117/60
[2019-01-08] MEDS: scopolamine 1.5mg patch.TD72 TD SCH (13:38)
[2019-01-08] MEDS: morphine 10mg/0.5ml (conc. morphine) oral syringe PO PRN (17:52)
--- NOTE | 2019-01-08 18:30 | NUR ---
Patient in room ORTHO 4015. I have received report from ministerio Chawla and had the opportunity to ask questions and assume patient care.
[2019-01-08 22:00] VITALS: BP 126/61
[2019-01-09] MEDS: morphine 10mg/0.5ml (conc. morphine) oral syringe PO PRN (05:15)
[2019-01-09 17:00] VITALS: BP 130/72
--- NOTE | 2019-01-09 19:01 | NUR ---
Patient in room ORTHO 4015. I have received report from ministerio valero and had the opportunity to ask questions and assume patient care.
[2019-01-09 22:00] VITALS: BP 135/55
--- NOTE | 2019-01-10 06:22 | NUR ---
Problems reprioritized. Patient report given, questions answered & plan of care reviewed with ministerio King.
--- NOTE | 2019-01-10 06:56 | NUR ---
Patient in room ORTHO 4015. I have received report from Anna HAMMOND and had the opportunity to ask questions and assume patient care.
[2019-01-10 11:43] VITALS: BP 173/84
[2019-01-10] MEDS: morphine 10mg/0.5ml (conc. morphine) oral syringe PO PRN (11:53)
--- NOTE | 2019-01-10 18:05 | NUR ---
Problems reprioritized. Patient report given, questions answered & plan of care reviewed with Marisel Reeder RN.
--- NOTE | 2019-01-10 18:20 | NUR ---
Problems reprioritized. Patient report given, questions answered & plan of care reviewed with BROOKLYNN HAMMOND.
--- NOTE | 2019-01-10 18:32 | NUR ---
Patient in room ORTHO 4015. I have received report from Kika HAMMOND and had the opportunity to ask questions and assume patient care.
[2019-01-10 22:00] VITALS: BP 80/45
[2019-01-11] MEDS: morphine 10mg/0.5ml (conc. morphine) oral syringe PO PRN (03:12)
--- NOTE | 2019-01-11 06:32 | NUR ---
Problems reprioritized. Patient report given, questions answered & plan of care reviewed with STEPHANY Ruelas.
[2019-01-11 11:37] VITALS: BP 72/51
--- NOTE | 2019-01-11 12:52 | NUR ---
Patients appetite is decreasing , she is not interested in lunch at this time
[2019-01-11] MEDS: scopolamine 1.5mg patch.TD72 TD SCH (13:45)
--- NOTE | 2019-01-11 18:21 | NUR ---
Patient in room [facility] 4[facility]. I have received report from Jessenia HMAMOND and had the opportunity to ask questions and assume patient care.
[2019-01-11 22:00] VITALS: BP 133/60
--- NOTE | 2019-01-12 06:10 | NUR ---
Patient in room [facility] 4015. I have received report from Shannon HAMMOND and had the opportunity to ask questions and assume patient care.
--- NOTE | 2019-01-12 06:17 | NUR ---
Problems reprioritized. Patient report given, questions answered & plan of care reviewed with Ana HAMMOND.
[2019-01-12 10:08] VITALS: BP 144/76
--- NOTE | 2019-01-12 10:54 | NUR ---
Reassessment: Pt with no documented BM. Per physical assessment LBM unknown. Pt with MoM PRN not yet given. Pt continues to be DNR with comfort care. Will continue to follow per protocol. Recommendations: 1) Monitor need for additional bowel care per comfort care measures Addendum: 01/12/19 at [address] Amended: Links added.
[2019-01-12] MEDS: morphine 10mg/0.5ml (conc. morphine) oral syringe PO PRN (16:21)
--- NOTE | 2019-01-12 18:15 | NUR ---
Patient in room [facility] 4015B. I have received report from STEPHANY Perez and had the opportunity to ask questions and assume patient care.
--- NOTE | 2019-01-12 18:30 | NUR ---
Problems reprioritized. Patient report given, questions answered & plan of care reviewed with Mily Le RN.
[2019-01-12 22:00] VITALS: BP 136/67
--- NOTE | 2019-01-13 06:00 | NUR ---
Patient in room [facility] 4015. I have received report from Mily Le RN and had the opportunity to ask questions and assume patient care.
--- NOTE | 2019-01-13 06:08 | NUR ---
Problems reprioritized. Patient report given, questions answered & plan of care reviewed with STEPHANY Perez.
[2019-01-13] MEDS: morphine 10mg/0.5ml (conc. morphine) oral syringe PO PRN ×2 (17:09→21:37)
--- NOTE | 2019-01-13 18:21 | NUR ---
Problems reprioritized. Patient report given, questions answered & plan of care reviewed with Hortencia.
[2019-01-13 22:00] VITALS: BP 98/76
--- NOTE | 2019-01-14 06:34 | NUR ---
REPORT GIVEN TO STEPHANY BABCOCK.
[2019-01-14 10:00] VITALS: BP 155/86
[2019-01-14] MEDS: scopolamine 1.5mg patch.TD72 TD SCH (12:17)
[2019-01-14] MEDS: morphine 10mg/0.5ml (conc. morphine) oral syringe PO PRN (12:27)
--- NOTE | 2019-01-14 18:30 | NUR ---
Report received from Kori HAMMOND.
[2019-01-15] MEDS: morphine 10mg/0.5ml (conc. morphine) oral syringe PO PRN ×3 (00:09→08:42)
[2019-01-15 06:00] VITALS: BP 107/50
--- NOTE | 2019-01-15 19:30 | NUR ---
report rec'd from ministerio Chawla.
[2019-01-15 22:00] VITALS: BP 110/65
[2019-01-16] MEDS: morphine 10mg/0.5ml (conc. morphine) oral syringe PO PRN (05:18)
--- NOTE | 2019-01-16 06:08 | NUR ---
report given to ministerio Chawla.
[2019-01-16 11:26] VITALS: BP 119/67
--- NOTE | 2019-01-17 06:00 | NUR ---
RECEIVED REPORT FROM EDGARDO, RN
--- NOTE | 2019-01-17 09:57 | NUR ---
CHANGED/REPLACED FOAMS OVER SADIE AREAS, CDI, CONTINUE TO MONITOR
[2019-01-17 10:00] VITALS: BP 130/58
[2019-01-17] MEDS: morphine 10mg/0.5ml (conc. morphine) oral syringe PO PRN (12:10)
[2019-01-17] MEDS: scopolamine 1.5mg patch.TD72 TD SCH (13:57)
--- NOTE | 2019-01-17 18:38 | NUR ---
gave report to ministerio virgen
[2019-01-17 22:00] VITALS: BP 131/52
--- NOTE | 2019-01-18 06:00 | NUR ---
Report given to Beth HAMMOND.
--- NOTE | 2019-01-18 06:09 | NUR ---
RECEIVED REPORT FROM VICKI Rubin RN
[2019-01-18 10:00] VITALS: BP 108/69
[2019-01-18] MEDS: morphine 10mg/0.5ml (conc. morphine) oral syringe PO PRN ×2 (10:04→22:36)
--- NOTE | 2019-01-18 18:10 | NUR ---
GAVE REPORT TO CHAUNCEY Le RN
--- NOTE | 2019-01-18 18:40 | NUR ---
Patient in room [facility] 4015. I have received report from BILLY HAMMOND and had the opportunity to ask questions and assume patient care.
[2019-01-19] MEDS: morphine 10mg/0.5ml (conc. morphine) oral syringe PO PRN ×2 (04:39→15:11)
--- NOTE | 2019-01-19 06:42 | NUR ---
Problems reprioritized. Patient report given, questions answered & plan of care reviewed with Mary HAMMOND.
[2019-01-19 10:00] VITALS: BP 111/54
--- NOTE | 2019-01-19 13:45 | NUR ---
Reassessment: Pt with no documented BM. Per physical assessment LBM unknown. Pt with milk of serge LUZ last given on 01/12. Pt continues to be DNR with comfort care. Will continue to follow per protocol. Recommendations: 1) Monitor need for additional bowel care per comfort care measures Addendum: 01/19/19 at [address] Amended: Links added.
--- NOTE | 2019-01-19 18:23 | NUR ---
Received report from STEPHANY Hernandez.
[2019-01-20] MEDS: morphine 10mg/0.5ml (conc. morphine) oral syringe PO PRN ×3 (05:26→14:02)
--- NOTE | 2019-01-20 06:45 | NUR ---
Patient in room [facility] 4015. I have received report from Mily HAMMOND and had the opportunity to ask questions and assume patient care.
--- NOTE | 2019-01-20 06:56 | NUR ---
Problems reprioritized. Patient report given, questions answered & plan of care reviewed with STEPHANY Sheikh.
[2019-01-20 10:00] VITALS: BP 95/44
[2019-01-20] MEDS: scopolamine 1.5mg patch.TD72 TD SCH (13:54)
--- NOTE | 2019-01-20 18:46 | NUR ---
Patient in room [facility] 4015B. I have received report from STEPHANY ARANA and had the opportunity to ask questions and assume patient care.
--- NOTE | 2019-01-20 19:04 | NUR ---
Problems reprioritized. Patient report given, questions answered & plan of care reviewed with Mily HAMMOND .
--- NOTE | 2019-01-20 22:52 | NUR ---
Granddaughter and daughter of patient came to visit tonight and family requesting a John for patient. I told them they are not here during the night and that we would work that out in the day hours. Daughter requested a recliner chair for her to stay the night.
[2019-01-21] MEDS: morphine 10mg/0.5ml (conc. morphine) oral syringe PO PRN (04:45)
--- NOTE | 2019-01-21 06:25 | NUR ---
Went to go check and reassess my patient pain level to find patient with no pulse. Apical pulse checked with no heart rate heard. Patient daughter at bedside so she was made aware. Did V/S with none noted. Asystole Noted on strip. Asked daughter if she knew what [facility] she wanted her Mom to go to. She was upset and couldn't answer me at that time. Phone call made to Dr. Kang regarding patient passing away. Memorandum still needs to be filled out by family.
--- NOTE | 2019-01-21 06:40 | NUR ---
Problems reprioritized. Patient report given, questions answered & plan of care reviewed with STEPHANY Castillo.
--- NOTE | 2019-01-21 07:14 | NUR ---
Strips noted [place] at [address] Pearl polanco to release remains. Donor network called with ref. number of [phone] spoke with Deya Coyle.
--- NOTE | 2019-01-21 07:14 | NUR ---
RN IS TO DOCUMENT YES TO ALL APPLICABLE AREAS Pronouncement of : 1. Time Physician Notified:[id number] 2. Date of :01/21/19 3. Time of : 616 4. DNR/Withdraw life support documented: 5. Monitor strip has been placed on chart: 6. Assessment process is of one-minute duration and includes following criteria: a) Patient is unresponsive to all stimuli: y b) Pupils fixed and non-reactive:y c) Auscultation of precordium reveals absence of heart tones:y d) Auscultation of lungs reveals absence of breath sounds:y e) Absence of blood pressure / all vital signs:y f) QRS complexes are not present on monitor / EKG strip:y g) Pacer spikes without capture: 4. Comments: Mily Strong RN and myself assessed the patient for these signs
== END 2019-01-21 06:17 | disposition expired | DRG 100 ==
LOC: ER 15:28 → ORTHO 4S 19:45 → CMPBEDREQ 01-07 19:31
PROVIDERS: ADMIT Hospitalist; ATTEND Internal Medicine
DX: G40.909 Epilepsy, unspecified, not intractable, without status epilepticus (principal); E43 Unspecified severe protein-calorie malnutrition; Z68.1 Body mass index [BMI] 19.9 or less, adult; E87.0 Hyperosmolality and hypernatremia; N17.9 Acute kidney failure, unspecified; N39.0 Urinary tract infection, site not specified; E16.2 Hypoglycemia, unspecified; R62.7 Adult failure to thrive; J44.9 Chronic obstructive pulmonary disease, unspecified; L89.152 Pressure ulcer of sacral region, stage 2; I48.91 Unspecified atrial fibrillation; E78.00 Pure hypercholesterolemia, unspecified; K21.9 Gastro-esophageal reflux disease without esophagitis; F41.9 Anxiety disorder, unspecified; R68.0 Hypothermia, not associated with low environmental temperature; G30.9 Alzheimer's disease, unspecified; F02.80 Dementia in other diseases classified elsewhere, unspecified severity, without behavioral disturbance, psychotic disturbance, mood disturbance, and anxiety; N18.9 Chronic kidney disease, unspecified; B96.20 Unspecified Escherichia coli [E. coli] as the cause of diseases classified elsewhere; I12.9 Hypertensive chronic kidney disease with stage 1 through stage 4 chronic kidney disease, or unspecified chronic kidney disease; Z51.5 Encounter for palliative care; Z66 Do not resuscitate; Z59.0 Homelessness; Z95.0 Presence of cardiac pacemaker; Z90.710 Acquired absence of both cervix and uterus; Z79.899 Other long term (current) drug therapy; Z86.73 Personal history of transient ischemic attack (TIA), and cerebral infarction without residual deficits; Z82.5 Family history of asthma and other chronic lower respiratory diseases; Z82.49 Family history of ischemic heart disease and other diseases of the circulatory system
CPT/HCPCS: 36415; 71045; 80053; 81001; 82948; 85025; 85610; 85730; 87070; 87077; 87088; 87186; 93005; 99285; G0378